=== PATIENT | male | born 1990 | race Hispanic/Latino ===

== ENCOUNTER 2024-05-16 17:58 | Inpatient (IN) | payer SELFPAY ==
[~2024-05-16] VITALS: Ht 177.8 cm; Wt 130.7 kg
[2024-05-16 19:13] LABS: BASOPHILS # (AUTO) 0.05 K/uL (0.00-0.20); BASOPHILS % (AUTO) 0.5 % (0.0-5.0); EOSINOPHILS # (AUTO) 0.03 K/uL (0.00-0.70); EOSINOPHILS % (AUTO) 0.3 % (0.0-8.0); HEMATOCRIT 49.1 % (42-54); IMMATURE GRANULOCYTE ABSOLUTE 0.05 K/uL (0-1); LYMPHOCYTES # (AUTO) 1.8 K/uL (1.0-4.8); MEAN CORPUSCULAR HGB CONC 35.6 g/dL (32.0-36.0); MEAN CORPUSCULAR VOLUME 92.5 fL (79-99); MONOCYTES # (AUTO) 0.8 K/uL (0.1-1.0); MONOCYTES % (AUTO) 7.7 % (3.0-13.0); NEUTROPHILS # (AUTO) 7.9 K/uL (1.8-7.7); PLATELET COUNT (AUTO) 228 K/uL (130-400); RED BLOOD CELL COUNT(AUTO) 5.31 MIL/uL (4.50-6.20); WHITE BLOOD COUNT (AUTO) 10.7 K/uL (4.8-10.8)
--- NOTE | 2024-05-16 19:18 | HMCIMG ---
US ABDOMINAL RUQ\E\LTD HISTORY: Abdominal pain COMPARISON: None TECHNIQUE: Right upper quadrant abdominal ultrasound study was performed. FINDINGS: Liver is enlarged measuring 19.7 cm. The visualized portion of the pancreas is within normal limits. Liver is echogenic consistent with liver parenchymal disease. Gallstones are seen in the gallbladder. Common duct measures 6 mm. No evidence of gallbladder wall thickening is seen. Right kidney measures 13.7 x 5.5 x 5.7 cm. No hydronephrosis is seen of the right kidney. There is right renal cyst measuring 12 mm. IMPRESSION: 1. Gallstones. Borderline ductal dilatation is seen. 2. No hydronephrosis is seen.
[2024-05-16 19:21] LABS: POTASSIUM 4.5 mmol/L (3.5-5.1)
[2024-05-16 19:25] LABS: BILIRUBIN,DIRECT 0.1 mg/dL (0.0-0.3); BILIRUBIN,TOTAL 0.8 mg/dL (0.2-1.0); TOTAL PROTEIN, SERUM 8.4 g/dL (6.0-8.3)
--- NOTE | 2024-05-16 20:50 | NUR ---
ASSUME PATIENT CARE AT THIS POINT
[2024-05-16] MEDS: 0.9%NACL 1000ML 1,000 ML IV ONE (21:18)
[2024-05-16] MEDS: ketOROlac 30MG VIAL (30MG/ML) IVP ONE (21:18)
[2024-05-16] MEDS: ondanSETRON 4MG INJ IVP ONE (21:18)
[2024-05-16] MEDS: morPHINE 4 MG SYG IVP ONE (21:18)
--- NOTE | 2024-05-16 21:41 | NUR ---
PATIENT NOT ON ANY HOME MEDS
--- NOTE | 2024-05-16 21:59 | ERN ---
ED Note History of Present Illness Stated Complaint: CHOLELITHIASIS Chief Complaint: Flank Pain Time Seen by MD: 18:02 Time Seen by Midlevel: 18:02 Dictation: The patient is a 33-year-old male with a history of gallstones who presents to the emergency department with complaints of right upper abdominal pain associated with nausea onset2 hours ago. Patient denies any fevers, vomiting, constipation or diarrhea. Denies any urinary discomfort. Allergies: Coded Allergies: No Known Drug Allergies (Unverified Allergy, Unknown, 05/16/24) Home Meds No Active Prescriptions or Reported Meds Past Medical History Past Medical History: Gallstones Surgical History: None RN Note Reviewed/Agreed w/PFSH: Yes Review of System Dictation Constitutional: Negative for fever,chills, and weight loss Eyes: Negative for injury, pain,redness, and discharge ENT: Negative for injury,pain or swelling Cardiovascular: Negative for chest pain, palpitations, and edema Respiratory: Negative for shortness of breath, cough, and wheezing, Abdomen/GI: Negative for vomiting, diarrhea, and constipation. Positive for abdominal pain, nausea Back: Negative for injury and pain : Negative for injury, bleeding and discharge MS/Extremity: Negative for injury and deformity Skin: Negative for rash, and discoloration Neuro: Negative for headache, weakness, numbness, tingling, and seizure Psych: Negative for suicide ideation, homicidal ideation, and hallucinations Initial Vital Sign VS Vital Signs Date Time Temp Pulse Resp B/P (MAP) Pulse Ox O2 Delivery O2 Flow Rate FiO2 05/16/24 18:19 99.0 79 16 171/105 100 Room Air* 0 21 Physical Exam Dictation Vital Signs reviewed General Appearance: Alert, oriented x 3, no acute distress, well developed, nourished. Head and Face: non-traumatic. Eyes: PERRL, pink conjunctivas, eyelid no trauma, anterior chamber with arcus senilis. Ears: Pinnas intact and no signs of trauma or erythema ear canals clear and no discharge TM no erythema Nose: No discharge, no bleeding. Oropharynx: Mouth normal, tongue pink. pharynx clear,no erythema, tonsils no exudates, no abscesses noted, mucous membrane moist Neck: Supple, non-tender, no thyromegaly, no masses, no JVD, no bruits Breast:Deferred Chest:No tenderness, no crepitus, no paradoxical movement, no retractions Lungs:Clear, well-ventilated, symmetric, no rales, no wheezing, no rhonchi, no stridor, good breath sounds bilaterally Heart: Regular rate, regular rhythm, no murmur, no gallops Vascular: no peripheral edema, Abdomen: Soft, positive bowel sounds, nondistended, no guarding, Right upper quadrant tenderness, no rebound, no masses no hepatomegaly, no splenomegaly, + Frias's sign, no hernias. Rectal: Deferred Genital: Deferred Neurological: Normal speech, motor function intact, sensory function intact Musculoskeletal: Neck nontender, full range of motion, back nontender, full range of motion, Extremities: nontender, full range of motion Skin: Color pink, dry, no turgor, no rash, no lacerations, no abrasions, no contusions. Lymphatic: Deferred Results (Laboratory/Radiology) Laboratory/Radiology Laboratory Tests Test 05/16/24 18:58 05/16/24 23:58 White Blood Count 10.7 K/uL (4.8-10.8) Red Blood Count 5.31 MIL/uL (4.50-6.20) Hemoglobin 17.5 g/dL (14.0-18.0) Hematocrit 49.1 % (42-54) Mean Corpuscular Volume 92.5 fL (79-99) Mean Corpuscular Hemoglobin 33.0 pg (27.0-33.0) Mean Corpuscular Hemoglobin Concent 35.6 g/dL (32.0-36.0) Red Cell Distribution Width 12.0 % (11.0-15.5) Platelet Count 228 K/uL (130-400) Mean Platelet Volume 10.3 fL (7.5-10.5) Immature Granulocyte % (Auto) 0.5 % (0-1) Neutrophils (%) (Auto) 74.0 % (40.0-77.0) Lymphocytes (%) (Auto) 17.0 % (21.0-51.0) L Monocytes (%) (Auto) 7.7 % (3.0-13.0) Eosinophils (%) (Auto) 0.3 % (0.0-8.0) Basophils (%) (Auto) 0.5 % (0.0-5.0) Neutrophils # (Auto) 7.9 K/uL (1.8-7.7) H Lymphocytes # (Auto) 1.8 K/uL (1.0-4.8) Monocytes # (Auto) 0.8 K/uL (0.1-1.0) Eosinophils # (Auto) 0.03 K/uL (0.00-0.70) Basophils # (Auto) 0.05 K/uL (0.00-0.20) Absolute Immature Granulocyte (auto 0.05 K/uL (0-1) Nucleated Red Blood Cells 0.0 % (0.0-0.19) Sodium Level 138 mmol/L (136-145) Potassium Level 4.5 mmol/L (3.5-5.1) Chloride Level 100 mmol/L (101-111) L Carbon Dioxide Level 34 mmol/L (21-32) H Blood Urea Nitrogen 7 mg/dL (7-18) Creatinine 1.0 mg/dL (0.5-1.3) Glomerular Filtration Rate Calc 103 mL/min (>90) Random Glucose 136 mg/dL (70-105) H Total Calcium 9.1 mg/dL (8.5-10.1) Total Bilirubin 0.8 mg/dL (0.2-1.0) Direct Bilirubin 0.1 mg/dL (0.0-0.3) Aspartate Amino Transf (AST/SGOT) 17 U/L (10-37) Alanine Aminotransferase (ALT/SGPT) 43 U/L (12-78) Alkaline Phosphatase 76 U/L (50-136) Total Protein 8.4 g/dL (6.0-8.3) H Albumin 4.0 g/dL (3.5-5.0) Lipase 36 U/L (16-77) Urine Color Light-Yellow (YELLOW) Urine Appearance CLEAR (CLEAR) Urine pH 6.0 (5.0-8.0) Urine Specific [place] 1.004 (1.001-1.031) Urine Protein NEGATIVE mg/dL (NEGATIVE) Urine Glucose (UA) TRACE mg/dL (NEGATIVE) H Urine Ketones NEGATIVE mg/dL (NEGATIVE) Urine Occult Blood NEGATIVE (NEGATIVE) Urine Nitrate NEGATIVE (NEGATIVE) Urine Bilirubin NEGATIVE mg/dL (NEGATIVE) Urine Urobilinogen 0.2 mg/dL (0.2-1.0) Urine Leukocyte Esterase NEGATIVE Jimi/uL Urine RBC None /HPF (0-1) Urine WBC 0-1 /HPF (0-1) Urine Bacteria None /HPF (None Seen) Labs Reviewed?: Yes ED Course ED Course Orders Procedure Category Date Status Time Cbc With Differential LAB 05/16/24 Complete 18:30 0.9%Nacl 1000ml (Ns PHA 05/16/24 Complete 1000ml) 18:30 Morphine 4mg Syg PHA 05/16/24 Complete (Morphine 4mg Syg) 18:30 Ondansetron 4mg Inj PHA 05/16/24 Complete (Zofran 4mg Inj) 18:30 Lipase LAB 05/16/24 Complete 18:30 Basic Metabolic Panel LAB 05/16/24 Complete 18:30 Hepatic Function Panel LAB 05/16/24 Complete 18:30 Us Abdominal Ruq\Ltd US 05/16/24 Resulted 18:30 Ketorolac PHA 05/16/24 Complete Tromethamine 30mg/Ml 21:00 Admit Orders ADM 05/16/24 Transmitted 21:09 Admit Orders ADM 05/16/24 Transmitted 21:59 Edm Admit Bridge Order ADM 05/16/24 Transmitted 21:59 Vital Signs Every 4 CPOE 05/16/24 Transmitted Hours 23:30 I&O Q Shift CPOE 05/16/24 Transmitted 23:30 Activity: Ad Zoya CPOE 05/16/24 Transmitted 23:30 Npo Except For Meds CPOE 05/16/24 Transmitted 23:30 O2 Order RT 05/16/24 Transmitted 23:30 Cbc With Differential LAB 05/17/24 In Process 04:00 Magnesium LAB 05/17/24 In Process 04:00 Phosphorus LAB 05/17/24 In Process 04:00 Thyroid Stimulating LAB 05/17/24 In Process Hormone 04:00 Lactated Ringers PHA 05/16/24 In Process 1000ml (Lactated 23:30 Acetaminophen 325 Tab PHA 05/16/24 In Process (Tylenol 325mg Tab 23:30 Acetaminophen 650mg PHA 05/16/24 In Process Supp (Tylenol 650mg 23:30 Lactulose 20 Gm/30 Ml PHA 05/16/24 In Process Udcup (Constulose 23:30 Docusate Sodium 100 PHA 05/16/24 In Process Mg Cap (Colace 100mg 23:30 Temazepam 15 Mg Cap PHA 05/16/24 In Process (Restoril 15 Mg Cap) 23:30 Ondansetron 4mg Inj PHA 05/16/24 In Process (Zofran 4mg Inj) 23:30 Hydralazine 20mg Inj PHA 05/16/24 In Process (Apresoline 20mg In 23:30 Apply Scds CPOE 05/16/24 Transmitted 23:30 Initiate TRE 05/16/24 In Process Hyperglycemia Protoco 23:30 Insulin Regular, PHA 05/17/24 In Process Human 3ml (Humulin R 07:30 Comprehensive LAB 05/17/24 In Process Metabolic Panel 04:00 Zosyn 3.375gm+Ns 50ml PHA 05/16/24 In Process (Zosyn 3.375gm+Ns 23:30 Hydromorphone 0.5mg PHA 05/17/24 Complete Syg (Dilaudid 0.5mg 01:00 Urinalysis LAB 05/16/24 Complete W/Microscopic 23:58 Lisinopril 10mg PHA 05/17/24 In Process (Prinivil 10mg) 03:15 Ketorolac PHA 05/17/24 In Process Tromethamine 30mg/Ml 04:30 Hemoglobin A1c LAB 05/17/24 Logged 04:18 Troponin I High LAB 05/17/24 Logged Sensitivity 04:18 General Surgery CONPHYSVC 05/17/24 Transmitted Consult 04:22 Vital Signs Date Time Temp Pulse Resp B/P (MAP) Pulse Ox O2 Delivery O2 Flow Rate FiO2 05/17/24 03:21 98.4 97 18 176/113 99 Room Air 05/17/24 01:05 89 161/101 05/17/24 00:07 89 182/98 05/16/24 23:00 Room Air* 0 05/16/24 22:30 98.4 97 18 185/103 99 Room Air 05/16/24 21:41 98.4 75 18 165/65 99 Room Air* 0 05/16/24 18:21 99.0 79 16 171/105 0 05/16/24 18:19 99.0 79 16 171/105 100 Room Air* 0 21 Medical Decision Making MDM MDM: The patient is a 33-year-old male with a history of gallstones who presents to the emergency department with complaints of right upper abdominal pain associated with nausea onset2 hours ago. Patient denies any fevers, vomiting, constipation or diarrhea. Denies any urinary discomfort. CBC showed no leukocytosis, no anemia, chemistry showed Differential diagnosis: Cholecystitis, cholelithiasis, gastritis, electrolyte imbalance, normal renal function, normal liver enzymes, normal lipase, ultrasound revealed a cholelithiasis with a borderline ductal dilation. Patient with tenderness to right upper quadrant. Will be admitted for further management. Comorbidities: Gallstones Tests considered and not ordered secondary to shared decision making include: none Previous outside records reviewed: none Risk of complication and/or morbidity or mortality of patient management: The patient meets criteria for admission. Need for emergency major/minor surgery: No There are no social concerns with this patient. I independently interpreted the tests I ordered (labs, urinalysis, etc.). I discussed the case with the hospitalist for admission. Fanta who accepts admission. I discussed the case with the following specialists: none. Historian: [email or web address]. I independently interpreted imaging studies and EKGs that I ordered (US, CT, XR, EKG, etc.). External chart review: none. Medical management and examination interpretation discussions were had by me wi th other qualified healthcare professionals as indicated for the patient's care. DX & DISP Disposition: Inpatient Decision to Admit Date: May 16, 2024 Decision to Admit Time: 21:09 Departure Impression: Primary Impression: Cholelithiasis Additional Impressions: Abdominal pain, Nausea Condition: Stable Scripts No Active Prescriptions or Reported Meds Referrals: SELF,REFERRAL (PCP) I have reviewed the case, and I agree with, Diagnosis and Plan ATTESTATION BY PHYSICIAN I PERFORMED THE SUBSTANTIVE PORTION OF THE VISIT. I HAVE REVIEWED AND PERSONALLY MADE AND APPROVED THE MANAGEMENT PLAN THAT IS DOCUMENTED IN THE NOTE BY MYSELF FOR THE A PP. I ACKNOWLEDGED FOR RESPONSIBILITY FOR THE PATIENT'S MANAGEMENT PLAN. SCOTT BARNEY May 16, 2024 21:59 SALBADOR IGNACIO MD May 17, 2024 05:10
[2024-05-16 22:30] VITALS: BP 185/103; PULSE 97; RESP 18; TEMP 98.5
--- NOTE | 2024-05-16 23:09 | HP ---
[facility] HISTORY AND PHYSICAL Date of Service: May 16, 2024 Time of Service: 23:09 Attending/supervising physician: Dr. Watkins and Dr. Elena Norris HISTORY OF PRESENT ILLNESS: Mr. Garvey is a 33-year-old male with a history of gallstones who presented to [facility] for evaluation of right upper abdominal pain associated with nausea onset 2 hours [employer]. Patient denies any fevers, vomiting, constipation or diarrhea. Denies any urinary discomfort. Patient reports that he has been to the hospital few for abdominal pain due to gallstones. He reports that he is discharged home and informed that gallbladder surgery is only done for emergencies. The patient presented to the ED with a blood pressure 171/105, heart rate 79, respirations 18, temperature 99.0 F, 100% on room air. The patient denies any known history of hypertension. Sonogram: Liver is enlarged measuring 19.7 cm. Liver is echogenic consistent with liver parenchymal disease. Gallstones are seen in the gallbladder. Common duct measures 6 mm. No evidence of gallbladder wall thickening is seen. Right kidney measures 13.7 x 5.5 x 5.7 cm. No hydronephrosis is seen of the right kidney. There is right renal cyst measuring 12 mm. IMPRESSION: Gallstones. Borderline ductal dilatation is seen. ED provider request patient be admitted with the diagnosis of cholelithiasis, abdominal pain, nausea. I went to assess patient at bedside in room 317. The patient appeared comfortable, in no distress. I informed patient and family at bedside of a labs, diagnostics, and plan of care. They verbalized understanding and are in agreement with the plan. Plan and assessment are listed below. REVIEW OF SYSTEMS CONSTITUTIONAL: Denies fevers, chills, or night sweats. No unintentional weight loss reported. NEUROLOGICAL: Denies headache, amaurosis fugax, motor weakness, sensory deficit, vertigo/spinning sensation, gait abnormalities, or tremors. ENT: No hearing loss, otalgia, otorrhea, rhinitis, rhinorrhea, hoarseness, or sore throat. CARDIOVASCULAR: Denies any exertional angina, dyspnea on exertion, orthopnea, paroxysmal nocturnal dyspnea, palpitations, life-threatening arrhythmias, claudication. PULMONARY: Denies any shortness of breath, cough, phlegm/sputum, hemoptysis, pleuritic chest pain. SLEEP: Denies morning headaches, daytime somnolence or napping. Denies diff iculty falling asleep, staying asleep, waking from sleep. Denies knowledge of snoring. GASTROINTESTINAL: Denies any type of dysphagia to either liquids or solids. Denies nausea, vomiting, pyrosis, early satiety, abdominal pain, diarrhea, constipation, or changes in stool consistency or caliber. Denies coffee-ground emesis, hematemesis, hematochezia, or melanotic stools. GENITOURINARY: Denies frequency, urgency, nocturia, hematuria or incontinence (Storage/Irritative symptoms.) Low urinary stream, straining to void, urinary intermittency or hesitancy, splitting of the voiding stream, terminal dribbling. ENDOCRINOLOGIC: Denies polyuria, polydipsia, polyphagia or heat/cold in tolerances. HEMATOLOGIC: Denies thrombophilia/previous clots, or coagulopathy/bleeding disorders. ONCOLOGIC: Denies personal history of malignancy. DERMATOLOGIC: Denies rashes or pruritus. PSYCHIATRIC: Denies any suicidal or homicidal ideation. Denies hallucinations. PAST MEDICAL HISTORY: [ ] PAST SURGICAL HISTORY: [ ] PAST SOCIAL HISTORY: [ ] FAMILY HISTORY: [ ] Coded Allergies: No Known Drug Allergies (Unverified Allergy, Unknown, 05/16/24) PHYSICAL EXAM GENERAL APPEARANCE: The patient is awake, alert, and oriented, in no acute cardiopulmonary distress. NEUROLOGICAL: Cranial nerves II-XII grossly intact. Motor is 5/5 in bilateral upper and lower extremities proximal to distal. No sensory deficits. HEENT: Face is symmetric. Pupils are equal and reactive. Extraocular movements are intact. NECK: Supple. No JVD. No thyromegaly. No submental, submandibular, pre- /postauricular, occipital or supraclavicular lymphadenopathy. CHEST: Normal chest expansion. No Telemetry. LUNGS: Absence of any rales, rhonchi or any wheezing. CARDIOVASCULAR: Regular. S1 and S2 normal. No appreciable rubs, murmurs or gallops. ABDOMEN: Soft, nontender, and nondistended. There is no rebound, voluntary guarding, or rigidity. : Deferred. No Wen. EXTREMITIES: Non-edematous and not cyanotic. No clubbing. Good capillary refill. SKIN: No skin breakdown. Vital Sign (Last 24 Hours) 05/16/24 05/16/24 21:41 22:30 Temp 98.4 Pulse 97 Resp 18 B/P (MAP) 185/103 Pulse Ox 99 O2 Delivery Room Air O2 Flow Rate 0 FiO2 21 LABS: Laboratory: Test 05/16/24 18:58 Range/Units White Blood Count 10.7 4.8-10.8 K/uL Red Blood Count 5.31 4.50-6.20 MIL/uL Hemoglobin 17.5 14.0-18.0 g/dL Hematocrit 49.1 42-54 % Mean Corpuscular Volume 92.5 79-99 fL Mean Corpuscular Hemoglobin 33.0 27.0-33.0 pg Mean Corpuscular Hemoglobin Concent 35.6 32.0-36.0 g/dL Red Cell Distribution Width 12.0 11.0-15.5 % Platelet Count 228 130-400 K/uL Mean Platelet Volume 10.3 7.5-10.5 fL Immature Granulocyte % (Auto) 0.5 0-1 % Neutrophils (%) (Auto) 74.0 40.0-77.0 % Lymphocytes (%) (Auto) 17.0 L 21.0-51.0 % Monocytes (%) (Auto) 7.7 3.0-13.0 % Eosinophils (%) (Auto) 0.3 0.0-8.0 % Basophils (%) (Auto) 0.5 0.0-5.0 % Neutrophils # (Auto) 7.9 H 1.8-7.7 K/uL Lymphocytes # (Auto) 1.8 1.0-4.8 K/uL Monocytes # (Auto) 0.8 0.1-1.0 K/uL Eosinophils # (Auto) 0.03 0.00-0.70 K/uL Basophils # (Auto) 0.05 0.00-0.20 K/uL Absolute Immature Granulocyte (auto 0.05 0-1 K/uL Nucleated Red Blood Cells 0.0 0.0-0.19 % Sodium Level 138 136-145 mmol/L Potassium Level 4.5 3.5-5.1 mmol/L Chloride Level 100 L 101-111 mmol/L Carbon Dioxide Level 34 H 21-32 mmol/L Blood Urea Nitrogen 7 7-18 mg/dL Creatinine 1.0 0.5-1.3 mg/dL Glomerular Filtration Rate Calc 103 >90 mL/min Random Glucose 136 H 70-105 mg/dL Total Calcium 9.1 8.5-10.1 mg/dL Total Bilirubin 0.8 0.2-1.0 mg/dL Direct Bilirubin 0.1 0.0-0.3 mg/dL Aspartate Amino Transf (AST/SGOT) 17 10-37 U/L Alanine Aminotransferase (ALT/SGPT) 43 12-78 U/L Alkaline Phosphatase 76 50-136 U/L Total Protein 8.4 H 6.0-8.3 g/dL Albumin 4.0 3.5-5.0 g/dL Lipase 36 16-77 U/L DIAGNOSTICS / RADIOLOGY: [ ] ASSESSMENT: Cholelithiasis with common ductal dilatation, per abdominal sono on 05/16/2024 Recurrent abdominal pain, POA Liver is enlarged and echogenic, consistent with liver parenchymal disease, per son 05/16/2024 Right renal cyst measuring 12 mm, per sono 05/16/2024 New onset hypertension Hyperglycemia Morbid obesity, BMI 41.4 PLAN: Admit patient to medical floor. P.r.n. medications for: Pain management, nausea, vomiting, constipation, fever, hypertension Consult general surgery. Start lisinopril 10 mg p.o. b.i.d. Blood pressure every 4 hours and p.r.n.. Glucometer checks a.c. and HS with insulin regular sliding scale. Monitor renal and liver function. Monitor electrolytes and treat accordingly. DVT and GI prophylaxis. A.m. labs: CBC, CMP, Mag, phos, TSH, A1c, troponin ADVANCED CARE PLANNING 1. Which of the following were discussed? Hospice Care - No Therapeutic options - Yes Advance Directives - Yes Other discussions - 2. Discussed with who? Patient 3. Voluntary nature of this service was explained to the patient? Yes 4. Amount of time spent - ___ over 35 minute ___ 5. Reviewed by Physician? (if this service was performed by NPP) Yes Patient seen and examined by me. Agree with note by [employer]OUNDW[employer] MONITORING TECHNICIAN SEE ADDITIONAL ORDERS PER CHART DISCUSSED WITH NURSING STAFF OUMOU LAMBERT HARNESS MENDER May 16, 2024 23:09
[2024-05-16] MEDS ORDERED: doCUSate SODIUM 100 MG CAP PO PRN (23:30)
[2024-05-16] MEDS ORDERED: LACTULOSE 20 GM/30 ML UDCUP PO PRN (23:30)
[2024-05-16] MEDS ORDERED: acetaMINOPHEN 650 MG SUPPOSITORY RC PRN (23:30)
[2024-05-16] MEDS ORDERED: ondanSETRON 4MG INJ IVP PRN (23:30)
[2024-05-16] MEDS ORDERED: TEMAZepam 15 MG CAPSULE PO PRN (23:30)
[2024-05-16] MEDS ORDERED: acetaMINOPHEN 325 MG TAB PO PRN (23:30)
[2024-05-16] MEDS: LACTATED RINGERS 1000ML 1,000 ML IV SCH (23:45)
[2024-05-16] MEDS: ZOSYN 3.375GM +NS 50ML IVPB SCH (23:49)
[2024-05-17] VITALS (11 sets, daily range): BP systolic 124–182; BP diastolic 69–117; PULSE 88–101; RESP 18–19; TEMP 98.4–99.2; O2SAT 96–97
[2024-05-17] MEDS: hydrALAZine 20MG/ML VIAL IV PRN ×2 (00:21→17:10)
--- NOTE | 2024-05-17 00:21 | NUR ---
High blood pressure Patient given hydralazine 10 mg IV push through 18G right antecubital vein at this time. Blood pressure 182/98, pulse 89bpm. Addendum: 05/17/24 at 0026 by BRENDAN BRYANT RN RN Correction: 18G IV to right hand
[2024-05-17] MEDS: hydroMORPHone 0.5 MG SYG (0.5MG/0.5ML) IVP ONE (01:11)
--- NOTE | 2024-05-17 01:38 | NUR ---
ELEVATED BP AT 0007 PATIENT BP WAS 182/98 SO 10 MG OF HYDRALAZINE WAS GIVEN AT 0021. RECHECKED AT 0105, BP WAS 161/101. PATIENT STATE HE IS EXPERIENCING ABDOMINAL PAIN 12/28. HE WAS THEN GIVEN A ONE TIME DOSE OF DILAUDID 0.5MG AND WILL RECHECK BP IN ANOTHER HOUR.
[2024-05-17 02:15] LABS: APPEARANCE,URINE CLEAR (CLEAR); BILIRUBIN,URINE NEGATIVE (NEGATIVE); COLOR,URINE Light-Yellow (YELLOW); GLUCOSE, URINE (UA) TRACE mg/dL (NEGATIVE); KETONES,URINE NEGATIVE (NEGATIVE); LEUKOCYTE ESTERASE ,URINE NEGATIVE Leu/uL (NEGATIVE); NITRATE,URINE NEGATIVE (NEGATIVE); OCCULT BLOOD,URINE NEGATIVE (NEGATIVE); PROTEIN,URINE NEGATIVE (NEGATIVE); UROBILINOGEN,URINE 0.2 mg/dL (0.2-1.0); WBC,URINE 0-1 /HPF (0-1)
[2024-05-17] MEDS: LISINOPRIL 10 MG TABLET PO SCH (03:37)
[2024-05-17 05:29] LABS: BASOPHILS # (AUTO) 0.05 K/uL (0.00-0.20); BASOPHILS % (AUTO) 0.3 % (0.0-5.0); EOSINOPHILS # (AUTO) 0.01 K/uL (0.00-0.70); EOSINOPHILS % (AUTO) 0.1 % (0.0-8.0); IMMATURE GRANULOCYTE ABSOLUTE 0.09 K/uL (0-1); LYMPHOCYTES # (AUTO) 1.8 K/uL (1.0-4.8); LYMPHOCYTES % (AUTO) 9.3 % (21.0-51.0); MEAN CORPUSCULAR HEMOGLOBIN 32.8 pg (27.0-33.0); MEAN CORPUSCULAR HGB CONC 35.5 g/dL (32.0-36.0); MEAN CORPUSCULAR VOLUME 92.3 fL (79-99); MONOCYTES # (AUTO) 1.5 K/uL (0.1-1.0); MONOCYTES % (AUTO) 8.1 % (3.0-13.0); NEUTROPHILS # (AUTO) 15.5 K/uL (1.8-7.7); NEUTROPHILS % (AUTO) 81.7 % (40.0-77.0); PLATELET COUNT (AUTO) 216 K/uL (130-400); RED BLOOD CELL COUNT(AUTO) 5.31 MIL/uL (4.50-6.20); WHITE BLOOD COUNT (AUTO) 18.9 K/uL (4.8-10.8)
[2024-05-17 05:58] LABS: ALBUMIN 3.8 g/dL (3.5-5.0); BILIRUBIN,TOTAL 1.3 mg/dL (0.2-1.0); CREATININE 0.9 mg/dL (0.5-1.3); MAGNESIUM 1.8 mg/dL (1.80-2.40); PHOSPHORUS 2.9 mg/dL (2.5-4.9); POTASSIUM 4.6 mmol/L (3.5-5.1); THYROID STIMULATING HORMONE 1.09 uIU/mL (0.36-3.74)
[2024-05-17] MEDS: INSULIN humuLIN R 100 UNIT/ML 3ML SQ SCH (06:14)
[2024-05-17] MEDS: ketOROlac 30MG VIAL (30MG/ML) IVP PRN (08:37)
[2024-05-17] MEDS ORDERED: morPHINE 2 MG SYG IVP PRN (11:30)
--- NOTE | 2024-05-17 11:30 | NUR ---
BLOOD GLUCOSE AT 121. NO INSULIN COVERAGE NEEDED AT THIS TIME
--- NOTE | 2024-05-17 12:00 | NUR ---
DCP: HOME met with pt and his mother Olinda Marcano [id number]. Pt lives with his parents, works at [employer] parents transport as needed. Pt is independent of ADLS and ambulation, no in home cares services, Has no PCP, community resources given. DCP is home Addendum: 05/17/24 at 1203 by PRABHA MAYO Amended: Links added.
--- NOTE | 2024-05-17 13:57 | PN ---
[facility] PROGRESS NOTE Date of Service: May 17, 2024 Time of Service: 13:[address] Trujillo SUBJECTIVE: [05/16 Mr. 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 Patient denies any fevers, vomiting, constipation or diarrhea. Denies any urinary discomfort. Patient reports that he has been to the hospital few for abdominal pain due to gallstones. He reports that he is discharged home and informed that gallbladder surgery is only done for emergencies. The patient presented to the ED with a blood pressure 171/105, heart rate 79, respirations 18, temperature 99.0 F, 100% on room air. The patient denies any known history of hypertension. Sonogram: Liver is enlarged measuring 19.7 cm. Liver is echogenic consistent with liver parenchymal disease. Gallstones are seen in the gallbladder. Common duct measures 6 mm. No evidence of gallbladder wall thickening is seen. Right kidney measures 13.7 x 5.5 x 5.7 cm. No hydronephrosis is seen of the right kidney. There is right renal cyst measuring 12 mm. IMPRESSION: Gallstones. Borderline ductal dilatation is seen. ED provider request patient be admitted with the diagnosis of cholelithiasis, abdominal pain, nausea. 05/17 patient was seen by nurse practitioner and physician during rounding in room 317 sitting in the chair. Today WBC is 18.9. Magnesium 1.8. Patient continues to be on Zosyn. Which was out of the way showed gallstones. Patient is pending evaluation/further recommendations by surgeon regarding possible cholecystectomy. We will continue to monitor patient in the meantime. A.m. labs.] REVIEW OF SYSTEMS CONSTITUTIONAL: Denies fevers, chills, or night sweats. No unintentional weight loss reported. NEUROLOGICAL: Denies headache, amaurosis fugax, motor weakness, sensory deficit, vertigo/spinning sensation, gait abnormalities, or tremors. ENT: No hearing loss, otalgia, otorrhea, rhinitis, rhinorrhea, hoarseness, or s ore throat. CARDIOVASCULAR: Denies any exertional angina, dyspnea on exertion, orthopnea, paroxysmal nocturnal dyspnea, palpitations, life-threatening arrhythmias, claudication. PULMONARY: Denies any shortness of breath, cough, phlegm/sputum, hemoptysis, pleuritic chest pain. SLEEP: Denies morning headaches, daytime somnolence or napping. Denies difficulty falling asleep, staying asleep, waking from sleep. Denies knowledge of snoring. GASTROINTESTINAL: Denies any type of dysphagia to either liquids or solids. Denies nausea, vomiting, pyrosis, early satiety, abdominal pain, diarrhea, constipation, or changes in stool consistency or caliber. Denies coffee-ground emesis, hematemesis, hematochezia, or melanotic stools. GENITOURINARY: Denies frequency, urgency, nocturia, hematuria or incontinence (Storage/Irritative symptoms.) Low urinary stream, straining to void, urinary intermittency or hesitancy, splitting of the voiding stream, terminal dribbling. ENDOCRINOLOGIC: Denies polyuria, polydipsia, polyphagia or heat/cold intolerances. HEMATOLOGIC: Denies thrombophilia/previous clots, or coagulopathy/bleeding disorders. ONCOLOGIC: Denies personal history of malignancy. DERMATOLOGIC: Denies rashes or pruritus. PSYCHIATRIC: Denies any suicidal or homicidal ideation. Denies hallucinations. PHYSICAL EXAM GENERAL APPEARANCE: The patient is awake, alert, and oriented, in no acute cardiopulmonary distress. NEUROLOGICAL: Cranial nerves II-XII grossly intact. Motor is 5/5 in bilateral upper and lower extremities proximal to distal. No sensory deficits. HEENT: Face is symmetric. Pupils are equal and reactive. Extraocular movements are intact. NECK: Supple. No JVD. No thyromegaly. No submental, submandibular, pre- /postauricular, occipital or supraclavicular lymphadenopathy. CHEST: Normal chest expansion. No Telemetry. LUNGS: Absence of any rales, rhonchi or any wheezing. CARDIOVASCULAR: Regular. S1 and S2 normal. No appreciable rubs, murmurs or gallops. ABDOMEN: Soft, nontender, and nondistended. There is no rebound, voluntary guarding, or rigidity. : Deferred. No Wen. EXTREMITIES: Non-edematous and not cyanotic. No clubbing. Good capillary refill. SKIN: No skin breakdown. Vital Signs (last 8hr) Date Time Temp Pulse Resp B/P (MAP) Pulse Ox O2 Delivery O2 Flow Rate FiO2 05/17/24 12:00 98.6 101 19 139/78 96 Room Air 05/17/24 07:58 99.0 91 19 146/94 97 Room Air 05/17/24 06:43 98 160/117 LABS: Laboratory: Test 05/17/24 11:41 05/17/24 04:54 05/16/24 23:58 05/16/24 18:58 Range/Units Whole Blood Glucose 121 H 70-110 MG/DL White Blood Count 18.9 #H 4.8-10.8 K/uL Red Blood Count 5.31 4.50-6.20 MIL/uL Hemoglobin 17.4 14.0-18.0 g/dL Hematocrit 49.0 42-54 % Mean Corpuscular Volume 92.3 79-99 fL Mean Corpuscular Hemoglobin 32.8 27.0-33.0 pg Mean Corpuscular Hemoglobin Concent 35.5 32.0-36.0 g/dL Red Cell Distribution Width 12.0 11.0-15.5 % Platelet Count 216 130-400 K/uL Mean Platelet Volume 10.7 H 7.5-10.5 fL Immature Granulocyte % (Auto) 0.5 0-1 % Neutrophils (%) (Auto) 81.7 H 40.0-77.0 % Lymphocytes (%) (Auto) 9.3 L 21.0-51.0 % Monocytes (%) (Auto) 8.1 3.0-13.0 % Eosinophils (%) (Auto) 0.1 0.0-8.0 % Basophils (%) (Auto) 0.3 0.0-5.0 % Neutrophils # (Auto) 15.5 H 1.8-7.7 K/uL Lymphocytes # (Auto) 1.8 1.0-4.8 K/uL Monocytes # (Auto) 1.5 H 0.1-1.0 K/uL Eosinophils # (Auto) 0.01 0.00-0.70 K/uL Basophils # (Auto) 0.05 0.00-0.20 K/uL Absolute Immature Granulocyte (auto 0.09 0-1 K/uL Nucleated Red Blood Cells 0.0 0.0-0.19 % White Cell Morphology Comment See comments Sodium Level 135 L 136-145 mmol/L Potassium Level 4.6 3.5-5.1 mmol/L Chloride Level 99 L 101-111 mmol/L Carbon Dioxide Level 30 21-32 mmol/L Blood Urea Nitrogen 5 L 7-18 mg/dL Creatinine 0.9 0.5-1.3 mg/dL Glomerular Filtration Rate Calc 116 >90 mL/min Random Glucose 120 H 70-105 mg/dL Hemoglobin A1c 5.0 4.0-6.0 % Estimated Average Glucose (eAG) 97 70-126 mg/dL Total Calcium 8.9 8.5-10.1 mg/dL Phosphorus Level 2.9 2.5-4.9 mg/dL Magnesium Level 1.80 1.80-2.40 mg/dL Total Bilirubin 1.3 #H 0.2-1.0 mg/dL Aspartate Amino Transf (AST/SGOT) 27 10-37 U/L Alanine Aminotransferase (ALT/SGPT) 41 12-78 U/L Alkaline Phosphatase 71 50-136 U/L Troponin I High Sensitivity < 4 L 4-75 ng/L Total Protein 8.0 6.0-8.3 g/dL Albumin 3.8 3.5-5.0 g/dL Thyroid Stimulating Hormone (TSH) 1.09 0.36-3.74 uIU/mL Urine Color Light-Yellow YELLOW Urine Appearance CLEAR CLEAR Urine pH 6.0 5.0-8.0 Urine Specific [place] 1.004 1.001-1.031 Urine Protein NEGATIVE NEGATIVE mg/dL Urine Glucose (UA) TRACE H NEGATIVE mg/dL Urine Ketones NEGATIVE NEGATIVE mg/dL Urine Occult Blood NEGATIVE NEGATIVE Urine Nitrate NEGATIVE NEGATIVE Urine Bilirubin NEGATIVE NEGATIVE mg/dL Urine Urobilinogen 0.2 0.2-1.0 mg/dL Urine Leukocyte Esterase NEGATIVE NEGATIVE Jimi/uL Urine RBC None 0-1 /HPF Urine WBC 0-1 0-1 /HPF Urine Bacteria None None Seen /HPF Direct Bilirubin 0.1 0.0-0.3 mg/dL Lipase 36 16-77 U/L Current Medications Medications (Trade) Dose Ordered Sig/Odette Route PRN Reason Start Time Stop Time Status Last Admin Dose Admin Acetaminophen (TYLenol 325MG TAB) 650 mg Q6H PRN PO FEVER/MILD PAIN LEVEL 1-3 05/16/24 23:30 06/15/24 23:29 Acetaminophen (TYLenol 650MG SUPPOSITORY) 650 mg Q6H PRN RC FEVER / MILD PAIN 1-3 IF NPO 05/16/24 23:30 06/15/24 23:29 Docusate Sodium (COLace 100MG CAP) 100 mg BID PRN PO CONSTIPATION 05/16/24 23:30 06/15/24 23:29 Hydralazine HCl (APRESOLine 20MG INJ) 10 mg Q2H PRN IV SBP GREATER THAN 160 05/16/24 23:30 05/17/24 11:27 DC 05/17/24 00:21 10 MG Hydralazine HCl (APRESOLine 20MG INJ) 10 mg Q6H6 PRN IV SBP GREATER THAN 150 05/17/24 11:30 06/15/24 23:29 Insulin Human Regular (humuLIN R 100 UNIT/ML 3ML) INSULIN SLIDING SCAL... ACHS SQ 05/17/24 07:30 06/16/24 07:29 Ketorolac Tromethamine (toRADol) 30 mg Q6H PRN IVP SEVERE PAIN (7-10) 05/17/24 04:30 05/22/24 04:29 05/17/24 08:37 30 MG Lactated Ringer's 1,000 ml @ 75 mls/hr [id number] IV 05/16/24 23:30 06/15/24 23:29 05/16/24 23:45 75 MLS/HR Lactulose (Constulose 20gm/ 30ml Udcup) 20 gm Q6H PRN PO CONSTIPATION 05/16/24 23:30 06/15/24 23:29 Lisinopril (Prinivil 10mg) 10 mg BID PO 05/17/24 03:15 06/16/24 03:14 05/17/24 03:37 10 MG Morphine Sulfate (morPHINE 2MG SYG) 2 mg Q6H6 PRN IVP SEVERE PAIN (7-10) 05/17/24 11:30 05/24/24 11:29 Ondansetron HCl (zoFRAN 4MG INJ) 4 mg Q6H PRN IVP NAUSEA/VOMITING 05/16/24 23:30 06/15/24 23:29 Piperacillin Sod/ Tazobactam Sod (Zosyn 3.375gm+NS 50ml) 3.375 gm Q12H IVPB 05/16/24 23:30 05/26/24 23:29 05/16/24 23:49 3.375 GM Temazepam (restORIL 15 MG CAP) 15 mg HS PRN PO INSOMNIA/SLEEP 05/16/24 23:30 06/15/24 23:29 DIAGNOSTICS / RADIOLOGY: [ ] ASSESSMENT: Cholelithiasis with common ductal dilatation, per abdominal sono on 05/16/2024 Recurrent abdominal pain, POA Liver is enlarged and echogenic, consistent with liver parenchymal disease, 05/16/2024 Right renal cyst measuring 12 mm, per sono 05/16/2024 New onset hypertension Hyperglycemia Morbid obesity, BMI 41.4 PLAN: Admit patient to medical floor. P.r.n. medications for: Pain management, nausea, vomiting, constipation, fever, hypertension Consult general surgery. Start lisinopril 10 mg p.o. b.i.d. Blood pressure every 4 hours and p.r.n.. Glucometer checks a.c. and HS with insulin regular sliding scale. Monitor renal and liver function. Monitor electrolytes and treat accordingly. DVT and GI prophylaxis. A.m. labs: ATTESTATION BY PHYSICIAN I have seen and examined the patient. I reviewed the documentation, medical decision making, and treatment plan as noted by the mid-level provider above. I agree with the findings and plan of care. Krishan Trujillo IV, MD, KATARZYNA B POACHER WRINGER OPERATOR May 17, 2024 13:56
--- NOTE | 2024-05-17 16:30 | NUR ---
BLOOD GLUCOSE AT 130. NO INSULIN COVERAGE NEEDED AT THIS TIME
[2024-05-18] VITALS (8 sets, daily range): BP systolic 122–143; BP diastolic 67–77; PULSE 72–85; RESP 18–20; TEMP 97.9–99.3; O2SAT 97–99
[2024-05-18 05:19] LABS: BASOPHILS # (AUTO) 0.05 K/uL (0.00-0.20); BASOPHILS % (AUTO) 0.4 % (0.0-5.0); EOSINOPHILS # (AUTO) 0.17 K/uL (0.00-0.70); EOSINOPHILS % (AUTO) 1.2 % (0.0-8.0); HEMATOCRIT 44.2 % (42-54); IMMATURE GRANULOCYTE ABSOLUTE 0.04 K/uL (0-1); LYMPHOCYTES # (AUTO) 2.5 K/uL (1.0-4.8); MEAN CORPUSCULAR HGB CONC 35.1 g/dL (32.0-36.0); MONOCYTES # (AUTO) 1.3 K/uL (0.1-1.0); MONOCYTES % (AUTO) 9.6 % (3.0-13.0); NEUTROPHILS # (AUTO) 9.7 K/uL (1.8-7.7); NEUTROPHILS % (AUTO) 70.5 % (40.0-77.0); PLATELET COUNT (AUTO) 187 K/uL (130-400); RED CELL DISTRIBUTION WIDTH 12.2 % (11.0-15.5); WHITE BLOOD COUNT (AUTO) 13.7 K/uL (4.8-10.8)
[2024-05-18 05:34] LABS: ALBUMIN 3.1 g/dL (3.5-5.0); BILIRUBIN,TOTAL 2.4 mg/dL (0.2-1.0); MAGNESIUM 1.9 mg/dL (1.80-2.40); POTASSIUM 3.8 mmol/L (3.5-5.1); TOTAL PROTEIN, SERUM 6.9 g/dL (6.0-8.3)
--- NOTE | 2024-05-18 08:00 | NUR ---
Patient is alert, oriented in person, time and place. No signs or symptoms of respiratory distress noted. Popliteal pulses present but weak on both legs. Bowel sounds present and active on all four abdominal quadrants. PIV patent. Educated patient and family members on plan of care, pain management, current medication, PRN medications. Patient and family members verbalized understanding.
--- NOTE | 2024-05-18 11:15 | PN ---
[facility] PROGRESS NOTE Date of Service: May 18, 2024 Time of Service: 11:[address] QUINTEROS SUBJECTIVE: [05/16 Mr. 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 Patient denies any fevers, vomiting, constipation or diarrhea. Denies any urinary discomfort. Patient reports that he has been to the hospital few for abdominal pain due to gallstones. He reports that he is discharged home and informed that gallbladder surgery is only done for emergencies. The patient presented to the ED with a blood pressure 171/105, heart rate 79, respirations 18, temperature 99.0 F, 100% on room air. The patient denies any known history of hypertension. Sonogram: Liver is enlarged measuring 19.7 cm. Liver is echogenic consistent with liver parenchymal disease. Gallstones are seen in the gallbladder. Common duct measures 6 mm. No evidence of gallbladder wall thickening is seen. Right kidney measures 13.7 x 5.5 x 5.7 cm. No hydronephrosis is seen of the right kidney. There is right renal cyst measuring 12 mm. IMPRESSION: Gallstones. Borderline ductal dilatation is seen. ED provider request patient be admitted with the diagnosis of cholelithiasis, abdominal pain, nausea. 05/17 patient was seen by nurse practitioner and physician during rounding in room 317 sitting in the chair. Today WBC is 18.9. Magnesium 1.8. Patient continues to be on Zosyn. Which was out of the way showed gallstones. Patient is pending evaluation/further recommendations by surgeon regarding possible cholecystectomy. We will continue to monitor patient in the meantime. A.m. labs. 05/18 PATIENT WAS SEEN BY NURSE PRACTITIONER AND PHYSICIAN DURING ROUNDING IN ROOM 317. Ultrasound abdomen shows that patient has a gallstones. Per surgeon patient is pending HIDA scan and MRCP today. Possible surgery tomorrow in a.m.. Patient continues to be on Zosyn. WBC is trending down today is 13.7. Replace potassium magnesium per protocol. We will continue to monitor patient in the meantime. A.m. labs.] REVIEW OF SYSTEMS CONSTITUTIONAL: Denies fevers, chills, or night sweats. No unintentional weight loss reported. NEUROLOGICAL: Denies headache, amaurosis fugax, motor weakness, sensory defic it, vertigo/spinning sensation, gait abnormalities, or tremors. ENT: No hearing loss, otalgia, otorrhea, rhinitis, rhinorrhea, hoarseness, or sore throat. CARDIOVASCULAR: Denies any exertional angina, dyspnea on exertion, orthopnea, paroxysmal nocturnal dyspnea, palpitations, life-threatening arrhythmias, claudication. PULMONARY: Denies any shortness of breath, cough, phlegm/sputum, hemoptysis, pleuritic chest pain. SLEEP: Denies morning headaches, daytime somnolence or napping. Denies difficulty falling asleep, staying asleep, waking from sleep. Denies knowledge of snoring. GASTROINTESTINAL: Denies any type of dysphagia to either liquids or solids. Denies nausea, vomiting, pyrosis, early satiety, abdominal pain, diarrhea, constipation, or changes in stool consistency or caliber. Denies coffee-ground emesis, hematemesis, hematochezia, or melanotic stools. GENITOURINARY: Denies frequency, urgency, nocturia, hematuria or incontinence (Storage/Irritative symptoms.) Low urinary stream, straining to void, urinary intermittency or hesitancy, splitting of the voiding stream, terminal dribbling. ENDOCRINOLOGIC: Denies polyuria, polydipsia, polyphagia or heat/cold intolerances. HEMATOLOGIC: Denies thrombophilia/previous clots, or coagulopathy/bleeding disorders. ONCOLOGIC: Denies personal history of malignancy. DERMATOLOGIC: Denies rashes or pruritus. PSYCHIATRIC: Denies any suicidal or homicidal ideation. Denies hallucinations. PHYSICAL EXAM GENERAL APPEARANCE: The patient is awake, alert, and oriented, in no acute cardiopulmonary distress. NEUROLOGICAL: Cranial nerves II-XII grossly intact. Motor is 5/5 in bilateral upper and lower extremities proximal to distal. No sensory deficits. HEENT: Face is symmetric. Pupils are equal and reactive. Extraocular movements are intact. NECK: Supple. No JVD. No thyromegaly. No submental, submandibular, pre- /postauricular, occipital or supraclavicular lymphadenopathy. CHEST: Normal chest expansion. No Telemetry. LUNGS: Absence of any rales, rhonchi or any wheezing. CARDIOVASCULAR: Regular. S1 and S2 normal. No appreciable rubs, murmurs or gallops. ABDOMEN: Soft, nontender, and nondistended. There is no rebound, voluntary guarding, or rigidity. : Deferred. No Wen. EXTREMITIES: Non-edematous and not cyanotic. No clubbing. Good capillary refill. SKIN: No skin breakdown. Vital Signs (last 8hr) Date Time Temp Pulse Resp B/P (MAP) Pulse Ox O2 Delivery O2 Flow Rate FiO2 05/18/24 08:00 99.3 83 18 143/67 97 Room Air 05/18/24 04:00 98.2 72 19 122/71 96 Room Air LABS: Laboratory: Test 05/18/24 05:41 05/18/24 04:44 05/17/24 04:54 05/16/24 23:58 Range/Units Whole Blood Glucose 99 70-110 MG/DL White Blood Count 13.7 #H 4.8-10.8 K/uL Red Blood Count 4.70 4.50-6.20 MIL/uL Hemoglobin 15.5 14.0-18.0 g/dL Hematocrit 44.2 42-54 % Mean Corpuscular Volume 94.0 79-99 fL Mean Corpuscular Hemoglobin 33.0 27.0-33.0 pg Mean Corpuscular Hemoglobin Concent 35.1 32.0-36.0 g/dL Red Cell Distribution Width 12.2 11.0-15.5 % Platelet Count 187 130-400 K/uL Mean Platelet Volume 10.8 H 7.5-10.5 fL Immature Granulocyte % (Auto) 0.3 0-1 % Neutrophils (%) (Auto) 70.5 40.0-77.0 % Lymphocytes (%) (Auto) 18.0 L 21.0-51.0 % Monocytes (%) (Auto) 9.6 3.0-13.0 % Eosinophils (%) (Auto) 1.2 0.0-8.0 % Basophils (%) (Auto) 0.4 0.0-5.0 % Neutrophils # (Auto) 9.7 H 1.8-7.7 K/uL Lymphocytes # (Auto) 2.5 1.0-4.8 K/uL Monocytes # (Auto) 1.3 H 0.1-1.0 K/uL Eosinophils # (Auto) 0.17 0.00-0.70 K/uL Basophils # (Auto) 0.05 0.00-0.20 K/uL Absolute Immature Granulocyte (auto 0.04 0-1 K/uL Nucleated Red Blood Cells 0.0 0.0-0.19 % Sodium Level 135 L 136-145 mmol/L Potassium Level 3.8 3.5-5.1 mmol/L Chloride Level 101 101-111 mmol/L Carbon Dioxide Level 31 21-32 mmol/L Blood Urea Nitrogen 8 7-18 mg/dL Creatinine 1.0 0.5-1.3 mg/dL Glomerular Filtration Rate Calc 103 >90 mL/min Random Glucose 99 70-105 mg/dL Total Calcium 8.5 8.5-10.1 mg/dL Magnesium Level 1.90 1.80-2.40 mg/dL Total Bilirubin 2.4 #H 0.2-1.0 mg/dL Aspartate Amino Transf (AST/SGOT) 17 10-37 U/L Alanine Aminotransferase (ALT/SGPT) 36 12-78 U/L Alkaline Phosphatase 60 50-136 U/L Total Protein 6.9 6.0-8.3 g/dL Albumin 3.1 L 3.5-5.0 g/dL White Cell Morphology Comment See comments Hemoglobin A1c 5.0 4.0-6.0 % Estimated Average Glucose (eAG) 97 70-126 mg/dL Phosphorus Level 2.9 2.5-4.9 mg/dL Troponin I High Sensitivity < 4 L 4-75 ng/L Thyroid Stimulating Hormone (TSH) 1.09 0.36-3.74 uIU/mL Urine Color Light-Yellow YELLOW Urine Appearance CLEAR CLEAR Urine pH 6.0 5.0-8.0 Urine Specific [place] 1.004 1.001-1.031 Urine Protein NEGATIVE NEGATIVE mg/dL Urine Glucose (UA) TRACE H NEGATIVE mg/dL Urine Ketones NEGATIVE NEGATIVE mg/dL Urine Occult Blood NEGATIVE NEGATIVE Urine Nitrate NEGATIVE NEGATIVE Urine Bilirubin NEGATIVE NEGATIVE mg/dL Urine Urobilinogen 0.2 0.2-1.0 mg/dL Urine Leukocyte Esterase NEGATIVE NEGATIVE Jimi/uL Urine RBC None 0-1 /HPF Urine WBC 0-1 0-1 /HPF Urine Bacteria None None Seen /HPF Test 05/16/24 18:58 Range/Units Direct Bilirubin 0.1 0.0-0.3 mg/dL Lipase 36 16-77 U/L Current Medications Medications (Trade) Dose Ordered Sig/Odette Route PRN Reason Start Time Stop Time Status Last Admin Dose Admin Acetaminophen (TYLenol 325MG TAB) 650 mg Q6H PRN PO FEVER/MILD PAIN LEVEL 1-3 05/16/24 23:30 06/15/24 23:29 Acetaminophen (TYLenol 650MG SUPPOSITORY) 650 mg Q6H PRN RC FEVER / MILD PAIN 1-3 IF NPO 05/16/24 23:30 06/15/24 23:29 Docusate Sodium (COLace 100MG CAP) 100 mg BID PRN PO CONSTIPATION 05/16/24 23:30 06/15/24 23:29 Hydralazine HCl (APRESOLine 20MG INJ) 10 mg Q2H PRN IV SBP GREATER THAN 160 05/16/24 23:30 05/17/24 11:27 DC 05/17/24 00:21 10 MG Hydralazine HCl (APRESOLine 20MG INJ) 10 mg Q6H6 PRN IV SBP GREATER THAN 150 05/17/24 11:30 06/15/24 23:29 05/17/24 17:10 10 MG Insulin Human Regular (humuLIN R 100 UNIT/ML 3ML) INSULIN SLIDING SCAL... ACHS SQ 05/17/24 07:30 06/16/24 07:29 Ketorolac Tromethamine (toRADol) 30 mg Q6H PRN IVP SEVERE PAIN (7-10) 05/17/24 04:30 05/22/24 04:29 05/18/24 09:14 30 MG Lactated Ringer's 1,000 ml @ 75 mls/hr [id number] IV 05/16/24 23:30 06/15/24 23:29 05/18/24 01:52 75 MLS/HR Lactulose (Constulose 20gm/ 30ml Udcup) 20 gm Q6H PRN PO CONSTIPATION 05/16/24 23:30 06/15/24 23:29 Lisinopril (Prinivil 10mg) 10 mg BID PO 05/17/24 03:15 06/16/24 03:14 05/18/24 09:12 10 MG Morphine Sulfate (morPHINE 2MG SYG) 2 mg Q6H6 PRN IVP SEVERE PAIN (7-10) 05/17/24 11:30 05/24/24 11:29 Ondansetron HCl (zoFRAN 4MG INJ) 4 mg Q6H PRN IVP NAUSEA/VOMITING 05/16/24 23:30 06/15/24 23:29 Piperacillin Sod/ Tazobactam Sod (Zosyn 3.375gm+NS 50ml) 3.375 gm Q12H IVPB 05/16/24 23:30 05/26/24 23:29 05/17/24 23:24 3.375 GM Temazepam (restORIL 15 MG CAP) 15 mg HS PRN PO INSOMNIA/SLEEP 05/16/24 23:30 06/15/24 23:29 DIAGNOSTICS / RADIOLOGY: [ ] ASSESSMENT: Cholelithiasis with common ductal dilatation, per abdominal sono on 05/16/2024 Recurrent abdominal pain, POA Liver is enlarged and echogenic, consistent with liver parenchymal disease, 05/16/2024 Right renal cyst measuring 12 mm, per sono 05/16/2024 New onset hypertension Hyperglycemia Morbid obesity, BMI 41.4 PLAN: MRCP pending HIDA scan pending P.r.n. medications for: Pain management, nausea, vomiting, constipation, fever, hypertension Consult general surgery. Start lisinopril 10 mg p.o. b.i.d. Blood pressure every 4 hours and p.r.n.. Glucometer checks a.c. and HS with insulin regular sliding scale. Monitor renal and liver function. Monitor electrolytes and treat accordingly. DVT and GI prophylaxis. A.m. labs: ATTESTATION BY PHYSICIAN I have seen and examined the patient. I reviewed the documentation, medical decision making, and treatment plan as noted by the mid-level provider above. I agree with the findings and plan of care. Sobeida Quinteros MD, KATARZYNA B QUENCHING MACHINE OPERATOR May 18, 2024 11:15
--- NOTE | 2024-05-18 11:30 | NUR ---
BLOOD GLUCOSE AT 97. NO INSULIN COVERAGE NEEDED AT THIS TIME
[2024-05-18] MEDS ORDERED: GADOTERATE MEGLUMINE 10 MMOL/20 ML VIAL IV ONE (11:32)
--- NOTE | 2024-05-18 14:23 | HMCIMG ---
MRI ABDOMEN WITH AND WITHOUT CONTRAST, INCLUDING MRCP 3-D RECONSTRUCTIONS INDICATION: Right upper abdominal pain. COMPARISON: None. TECHNIQUE: Multisequence multiplanar imaging of the abdomen was obtained with and without IV contrast. Approximately 15 mL of IV Clariscan contrast material was administered for the postcontrast portion of the study. Three-dimensional MRCP was performed using maximum intensity projection reconstructions on the same workstation in order to better delineate the bile duct anatomy. FINDINGS/IMPRESSION: Diagnostic sensitivity of this examination is limited by patient motion artifact. Heart size is normal and visible lungs are clear. Liver, spleen, kidneys, adrenal glands, pancreas, pancreatic duct, stomach, and visible small and large bowel loops appear grossly normal without any intra-abdominal free fluid or lymphadenopathy. Several low signal foci within the slightly distended gallbladder without gallbladder wall thickening or pericholecystic fluid compatible with cholelithiasis without cholecystitis, and no evidence for any intrahepatic or extra hepatic biliary duct dilation or cholelithiasis.
--- NOTE | 2024-05-18 14:57 | CONS ---
GENERAL SURGERY CONSULTATION NOTE DATE OF CONSULTATION: May 18, 2024 TIME OF CONSULTATION: 14:57 CONSULTING SERVICE: Piyush Agrawal MD REQUESTING PHYSICAIN: [ ] REASON FOR CONSULTATION: [ ] HISTORY OF PRESENT ILLNESS: [ ] PAST MEDICAL HISTORY: [ ] PAST SURGICAL HISTORY: [ ] FAMILY HISTORY: [ ] SOCIAL HISTORY: [ ] Current Medications Medications (Trade) Dose Ordered Sig/Odette Route Start Time Stop Time Status Last Admin Dose Admin Insulin Human Regular (humuLIN R 100 UNIT/ML 3ML) INSULIN SLIDING SCAL... 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 PHYSICAL EXAMINATION: GENERAL: [Patient is lying comfortably in bed, not in any obvious distress.] HEAD: [Normal with no signs of head trauma.] EYES: [Not pale not jaundiced afebrile to touch.] ENT: [ Normal.] NECK: [Supple,no tenderness,no lymphadenopathy,no masses,no thyromegaly ,no bruits, no JVD.] LUNGS: [Clear breath sounds bilaterally. No wheezes, rales, or rhonchi.] HEART: [Regular rate and rhythm. Normal S1 and S2, without murmurs, rub or gallop.] VASC: [No edema. Peripheral pulses normal and equal in all extremities.] ABD: [Bowel sounds present,soft, RUQ tender, no masses, no organomegaly.] : [Normal, no suprapubic tenderness.] LYMPH: [No lymphadenopathy noted.] EXT: [ Warm soft, non tender.] SKIN: [ No rashes or lesions.] NEURO: [ Awake Alert and oriented x3.] Vital Signs (last 8hr) Date Time Temp Pulse Resp B/P (MAP) Pulse Ox O2 Delivery O2 Flow Rate FiO2 05/18/24 11:52 98.6 85 18 129/74 100 Room Air 21 05/18/24 11:48 97 Room Air* 0 21 05/18/24 08:00 99.3 83 18 143/67 97 Room Air LABORATORY: [ ] Hematology Labs: Test 05/18/24 04:44 05/17/24 04:54 Range/Units White Blood Count 13.7 #H 4.8-10.8 K/uL Red Blood Count 4.70 4.50-6.20 MIL/uL Hemoglobin 15.5 14.0-18.0 g/dL Hematocrit 44.2 42-54 % Mean Corpuscular Volume 94.0 79-99 fL Mean Corpuscular Hemoglobin 33.0 27.0-33.0 pg Mean Corpuscular Hemoglobin Concent 35.1 32.0-36.0 g/dL Red Cell Distribution Width 12.2 11.0-15.5 % Platelet Count 187 130-400 K/uL Mean Platelet Volume 10.8 H 7.5-10.5 fL Immature Granulocyte % (Auto) 0.3 0-1 % Neutrophils (%) (Auto) 70.5 40.0-77.0 % Lymphocytes (%) (Auto) 18.0 L 21.0-51.0 % Monocytes (%) (Auto) 9.6 3.0-13.0 % Eosinophils (%) (Auto) 1.2 0.0-8.0 % Basophils (%) (Auto) 0.4 0.0-5.0 % Neutrophils # (Auto) 9.7 H 1.8-7.7 K/uL Lymphocytes # (Auto) 2.5 1.0-4.8 K/uL Monocytes # (Auto) 1.3 H 0.1-1.0 K/uL Eosinophils # (Auto) 0.17 0.00-0.70 K/uL Basophils # (Auto) 0.05 0.00-0.20 K/uL Absolute Immature Granulocyte (auto 0.04 0-1 K/uL Nucleated Red Blood Cells 0.0 0.0-0.19 % White Cell Morphology Comment See comments Chemistry Labs: Test 05/18/24 11:12 05/18/24 04:44 05/17/24 04:54 05/16/24 18:58 Range/Units Whole Blood Glucose 97 70-110 MG/DL Sodium Level 135 L 136-145 mmol/L Potassium Level 3.8 3.5-5.1 mmol/L Chloride Level 101 101-111 mmol/L Carbon Dioxide Level 31 21-32 mmol/L Blood Urea Nitrogen 8 7-18 mg/dL Creatinine 1.0 0.5-1.3 mg/dL Glomerular Filtration Rate Calc 103 >90 mL/min Random Glucose 99 70-105 mg/dL Total Calcium 8.5 8.5-10.1 mg/dL Magnesium Level 1.90 1.80-2.40 mg/dL Total Bilirubin 2.4 #H 0.2-1.0 mg/dL Aspartate Amino Transf (AST/SGOT) 17 10-37 U/L Alanine Aminotransferase (ALT/SGPT) 36 12-78 U/L Alkaline Phosphatase 60 50-136 U/L Total Protein 6.9 6.0-8.3 g/dL Albumin 3.1 L 3.5-5.0 g/dL Hemoglobin A1c 5.0 4.0-6.0 % Estimated Average Glucose (eAG) 97 70-126 mg/dL Phosphorus Level 2.9 2.5-4.9 mg/dL Troponin I High Sensitivity < 4 L 4-75 ng/L Thyroid Stimulating Hormone (TSH) 1.09 0.36-3.74 uIU/mL Direct Bilirubin 0.1 0.0-0.3 mg/dL Lipase 36 16-77 U/L DIAGNOSTICS / RADIOLOGY: [Copy/Paste Echos/Imaging Report here] ASSESSMENT: [] PLAN: [] NPO/IVF/IV ANTIOBIOTICS Schedule for OR We talked about various treatment options including but not limited to surgery. We talked about risks and benefits of surgery, patient verbalized understanding has agreed to proceed [ ]. We will schedule [ ]. PIYUSH AGRAWAL MD May 18, 2024 14:57
--- NOTE | 2024-05-18 15:41 | HMCIMG ---
NM HIDA WO EF/CCK REASON: GALLSTONES. COMPARISON: None TECHNIQUE: Hepatobiliary imaging study was performed with 7.5 mCi of technetium Choletec through intravenous route. 2 hour delayed images were obtained. FINDINGS: Normal visualization of bile activity noted within 1 hour. There is nonvisualization of gallbladder activity at 2 hours suggestive of acute cholecystitis in the proper clinical setting. IMPRESSION: There is nonvisualization of gallbladder activity at 2 hours suggestive of acute cholecystitis in the proper clinical setting.
--- NOTE | 2024-05-18 16:30 | NUR ---
BLOOD GLUCOSE AT 118. NO INSULIN COVERAGE NEEDED AT THIS TIME
[2024-05-19] VITALS (7 sets, daily range): BP systolic 120–153; BP diastolic 69–84; PULSE 59–77; RESP 17–19; TEMP 97.7–98.7; O2SAT 94–97
[2024-05-19 05:12] LABS: BASOPHILS # (AUTO) 0.03 K/uL (0.00-0.20); BASOPHILS % (AUTO) 0.3 % (0.0-5.0); EOSINOPHILS # (AUTO) 0.24 K/uL (0.00-0.70); EOSINOPHILS % (AUTO) 2.3 % (0.0-8.0); HEMATOCRIT 42.3 % (42-54); IMMATURE GRANULOCYTE ABSOLUTE 0.03 K/uL (0-1); LYMPHOCYTES # (AUTO) 2.2 K/uL (1.0-4.8); LYMPHOCYTES % (AUTO) 20.9 % (21.0-51.0); MEAN CORPUSCULAR HEMOGLOBIN 32.6 pg (27.0-33.0); MEAN CORPUSCULAR HGB CONC 34.8 g/dL (32.0-36.0); MEAN CORPUSCULAR VOLUME 93.8 fL (79-99); MONOCYTES # (AUTO) 0.9 K/uL (0.1-1.0); MONOCYTES % (AUTO) 8.8 % (3.0-13.0); NEUTROPHILS # (AUTO) 7.2 K/uL (1.8-7.7); NEUTROPHILS % (AUTO) 67.4 % (40.0-77.0); PLATELET COUNT (AUTO) 164 K/uL (130-400); RED BLOOD CELL COUNT(AUTO) 4.51 MIL/uL (4.50-6.20); RED CELL DISTRIBUTION WIDTH 11.9 % (11.0-15.5); WHITE BLOOD COUNT (AUTO) 10.7 K/uL (4.8-10.8)
[2024-05-19 05:30] LABS: ALBUMIN 3.1 g/dL (3.5-5.0); BILIRUBIN,TOTAL 1.9 mg/dL (0.2-1.0); CREATININE 0.9 mg/dL (0.5-1.3); MAGNESIUM 2.1 mg/dL (1.80-2.40); POTASSIUM 3.9 mmol/L (3.5-5.1); TOTAL PROTEIN, SERUM 6.9 g/dL (6.0-8.3)
--- NOTE | 2024-05-19 11:22 | PN ---
[facility] PROGRESS NOTE Date of Service: May 19, 2024 Time of Service: 11:16 SUBJECTIVE: [05/16 Mr. Garvey is a 33-year-old male with a history of gallstones who presented to [facility] ED for evaluation of right upper abdominal pain associated with nausea onset 2 hours [employer]. Patient denies any fevers, vomiting, constipation or diarrhea. Denies any urinary discomfort. Patient reports that he has been to the hospital few for abdominal pain due to gallstones. He reports that he is discharged home and informed that gallbladder surgery is only done for emergencies. The patient presented to the ED with a blood pressure 171/105, heart rate 79, re spirations 18, temperature 99.0 F, 100% on room air. The patient denies any known history of hypertension. Sonogram: Liver is enlarged measuring 19.7 cm. Liver is echogenic consistent with liver parenchymal disease. Gallstones are seen in the gallbladder. Common duct measures 6 mm. No evidence of gallbladder wall thickening is seen. Right kidney measures 13.7 x 5.5 x 5.7 cm. No hydronephrosis is seen of the right kidney. There is right renal cyst measuring 12 mm. IMPRESSION: Gallstones. Borderline ductal dilatation is seen. ED provider request patient be admitted with the diagnosis of cholelithiasis, abdominal pain, nausea. 05/17 patient was seen by nurse practitioner and physician during rounding in room 317 sitting in the chair. Today WBC is 18.9. Magnesium 1.8. Patient continues to be on Zosyn. Which was out of the way showed gallstones. Patient is pending evaluation/further recommendations by surgeon regarding possible cholecystectomy. We will continue to monitor patient in the meantime. A.m. labs. 05/18 PATIENT WAS SEEN BY NURSE PRACTITIONER AND PHYSICIAN DURING ROUNDING IN ROOM 317. Ultrasound abdomen shows that patient has a gallstones. Per surgeon patient is pending HIDA scan and MRCP today. Possible surgery tomorrow in a.m.. Patient continues to be on Zosyn. WBC is trending down today is 13.7. Replace potassium magnesium per protocol. We will continue to monitor patient in the meantime. A.m. labs. 05/19 patient was evaluated in the room, he is sitting on the bed. He complained of right lower quadrant pain with slight nausea. HIDA scan came back positive with a acute cholecystitis. Plan is for lap jamari tomorrow by Dr. Deutsch Patient will be NPO after midnight.] REVIEW OF SYSTEMS CONSTITUTIONAL: Denies fevers, chills, or night sweats. No unintentional weight loss reported. NEUROLOGICAL: Denies headache, amaurosis fugax, motor weakness, sensory deficit, vertigo/spinning sensation, gait abnormalities, or tremors. ENT: No hearing loss, otalgia, otorrhea, rhinitis, rhinorrhea, hoarseness, or sore throat. CARDIOVASCULAR: Denies any exertional angina, dyspnea on exertion, orthopnea, paroxysmal nocturnal dyspnea, palpitations, life-threatening arrhythmias, claudication. PULMONARY: Denies any shortness of breath, cough, phlegm/sputum, hemoptysis, pleuritic chest pain. SLEEP: Denies morning headaches, daytime somnolence or napping. Denies difficulty falling asleep, staying asleep, waking from sleep. Denies knowledge of snoring. GASTROINTESTINAL: Denies any type of dysphagia to either liquids or solids. Denies nausea, vomiting, pyrosis, early satiety, abdominal pain, diarrhea, constipation, or changes in stool consistency or caliber. Denies coffee-ground emesis, hematemesis, hematochezia, or melanotic stools. GENITOURINARY: Denies frequency, urgency, nocturia, hematuria or incontinence (Storage/Irritative symptoms.) Low urinary stream, straining to void, urinary intermittency or hesitancy, splitting of the voiding stream, terminal dribbling. ENDOCRINOLOGIC: Denies polyuria, polydipsia, polyphagia or heat/cold intolerances. HEMATOLOGIC: Denies thrombophilia/previous clots, or coagulopathy/bleeding disorders. ONCOLOGIC: Denies personal history of malignancy. DERMATOLOGIC: Denies rashes or pruritus. PSYCHIATRIC: Denies any suicidal or homicidal ideation. Denies hallucinations. PHYSICAL EXAM GENERAL APPEARANCE: The patient is awake, alert, and oriented, in no acute cardiopulmonary distress. NEUROLOGICAL: Cranial nerves II-XII grossly intact. Motor is 5/5 in bilateral upper and lower extremities proximal to distal. No sensory deficits. HEENT: Face is symmetric. Pupils are equal and reactive. Extraocular movements are intact. NECK: Supple. No JVD. No thyromegaly. No submental, submandibular, pre- /postauricular, occipital or supraclavicular lymphadenopathy. CHEST: Normal chest expansion. No Telemetry. LUNGS: Absence of any rales, rhonchi or any wheezing. CARDIOVASCULAR: Regular. S1 and S2 normal. No appreciable rubs, murmurs or gallops. ABDOMEN: Soft, nontender, and nondistended. There is no rebound, voluntary guarding, or rigidity. : Deferred. No Wen. EXTREMITIES: Non-edematous and not cyanotic. No clubbing. Good capillary refill. SKIN: No skin breakdown. Vital Signs (last 8hr) Date Time Temp Pulse Resp B/P (MAP) Pulse Ox O2 Delivery O2 Flow Rate FiO2 05/19/24 08:00 98.8 68 18 153/84 97 Room Air 05/19/24 07:55 97 Room Air* 0 21 05/19/24 04:00 98.1 77 19 147/83 98 Room Air LABS: Laboratory: Test 05/19/24 10:40 05/19/24 04:50 Range/Units Whole Blood Glucose 111 H 70-110 MG/DL White Blood Count 10.7 4.8-10.8 K/uL Red Blood Count 4.51 4.50-6.20 MIL/uL Hemoglobin 14.7 14.0-18.0 g/dL Hematocrit 42.3 42-54 % Mean Corpuscular Volume 93.8 79-99 fL Mean Corpuscular Hemoglobin 32.6 27.0-33.0 pg Mean Corpuscular Hemoglobin Concent 34.8 32.0-36.0 g/dL Red Cell Distribution Width 11.9 11.0-15.5 % Platelet Count 164 130-400 K/uL Mean Platelet Volume 10.4 7.5-10.5 fL Immature Granulocyte % (Auto) 0.3 0-1 % Neutrophils (%) (Auto) 67.4 40.0-77.0 % Lymphocytes (%) (Auto) 20.9 L 21.0-51.0 % Monocytes (%) (Auto) 8.8 3.0-13.0 % Eosinophils (%) (Auto) 2.3 0.0-8.0 % Basophils (%) (Auto) 0.3 0.0-5.0 % Neutrophils # (Auto) 7.2 1.8-7.7 K/uL Lymphocytes # (Auto) 2.2 1.0-4.8 K/uL Monocytes # (Auto) 0.9 0.1-1.0 K/uL Eosinophils # (Auto) 0.24 0.00-0.70 K/uL Basophils # (Auto) 0.03 0.00-0.20 K/uL Absolute Immature Granulocyte (auto 0.03 0-1 K/uL Nucleated Red Blood Cells 0.0 0.0-0.19 % Sodium Level 140 136-145 mmol/L Potassium Level 3.9 3.5-5.1 mmol/L Chloride Level 104 101-111 mmol/L Carbon Dioxide Level 30 21-32 mmol/L Blood Urea Nitrogen 10 7-18 mg/dL Creatinine 0.9 0.5-1.3 mg/dL Glomerular Filtration Rate Calc 116 >90 mL/min Random Glucose 83 70-105 mg/dL Total Calcium 8.7 8.5-10.1 mg/dL Magnesium Level 2.10 1.80-2.40 mg/dL Total Bilirubin 1.9 H 0.2-1.0 mg/dL Aspartate Amino Transf (AST/SGOT) 25 10-37 U/L Alanine Aminotransferase (ALT/SGPT) 50 12-78 U/L Alkaline Phosphatase 61 50-136 U/L Total Protein 6.9 6.0-8.3 g/dL Albumin 3.1 L 3.5-5.0 g/dL Current Medications Medications (Trade) Dose Ordered Sig/Odette Route PRN Reason Start Time Stop Time Status Last Admin Dose Admin Acetaminophen (TYLenol 325MG TAB) 650 mg Q6H PRN PO FEVER/MILD PAIN LEVEL 1-3 05/16/24 23:30 06/15/24 23:29 Acetaminophen (TYLenol 650MG SUPPOSITORY) 650 mg Q6H PRN RC FEVER / MILD PAIN 1-3 IF NPO 05/16/24 23:30 06/15/24 23:29 Docusate Sodium (COLace 100MG CAP) 100 mg BID PRN PO CONSTIPATION 05/16/24 23:30 06/15/24 23:29 Hydralazine HCl (APRESOLine 20MG INJ) 10 mg Q2H PRN IV SBP GREATER THAN 160 05/16/24 23:30 05/17/24 11:27 DC 05/17/24 00:21 10 MG Hydralazine HCl (APRESOLine 20MG INJ) 10 mg Q6H6 PRN IV SBP GREATER THAN 150 05/17/24 11:30 06/15/24 23:29 05/17/24 17:10 10 MG Insulin Human Regular (humuLIN R 100 UNIT/ML 3ML) INSULIN SLIDING SCAL... ACHS SQ 05/17/24 07:30 06/16/24 07:29 Ketorolac Tromethamine (toRADol) 30 mg Q6H PRN IVP SEVERE PAIN (7-10) 05/17/24 04:30 05/22/24 04:29 05/19/24 09:48 30 MG Lactated Ringer's 1,000 ml @ 75 mls/hr [id number] IV 05/16/24 23:30 06/15/24 23:29 05/19/24 04:15 75 MLS/HR Lactulose (Constulose 20gm/ 30ml Udcup) 20 gm Q6H PRN PO CONSTIPATION 05/16/24 23:30 06/15/24 23:29 Lisinopril (Prinivil 10mg) 10 mg BID PO 05/17/24 03:15 06/16/24 03:14 05/19/24 09:49 10 MG Morphine Sulfate (morPHINE 2MG SYG) 2 mg Q6H6 PRN IVP SEVERE PAIN (7-10) 05/17/24 11:30 05/24/24 11:29 Ondansetron HCl (zoFRAN 4MG INJ) 4 mg Q6H PRN IVP NAUSEA/VOMITING 05/16/24 23:30 06/15/24 23:29 Piperacillin Sod/ Tazobactam Sod (Zosyn 3.375gm+NS 50ml) 3.375 gm Q12H IVPB 05/16/24 23:30 05/26/24 23:29 05/18/24 23:54 3.375 GM Temazepam (restORIL 15 MG CAP) 15 mg HS PRN PO INSOMNIA/SLEEP 05/16/24 23:30 06/15/24 23:29 DIAGNOSTICS / RADIOLOGY: [ ] ASSESSMENT: Cholelithiasis with common ductal dilatation, per abdominal sono on 05/16/2024 Recurrent abdominal pain, POA Liver is enlarged and echogenic, consistent with liver parenchymal disease, 05/16/2024 Right renal cyst measuring 12 mm, per sono 05/16/2024 New onset hypertension Hyperglycemia Morbid obesity, BMI 41.4 PLAN: MRCP pending HIDA scan pending P.r.n. medications for: Pain management, nausea, vomiting, constipation, fever, hypertension Consult general surgery. Start lisinopril 10 mg p.o. b.i.d. Blood pressure every 4 hours and p.r.n.. Glucometer checks a.c. and HS with insulin regular sliding scale. Monitor renal and liver function. Monitor electrolytes and treat accordingly. DVT and GI prophylaxis. A.m. labs: ATTESTATION BY PHYSICIAN I have seen and examined the patient. I reviewed the documentation, medical decision making, and treatment plan as noted by the mid-level provider above. I agree with the findings and plan of care. Sobeida Norris MD, [facility] May 19, 2024 11:22
--- NOTE | 2024-05-19 11:30 | NUR ---
BLOOD GLUCOSE AT 111. NO INSULIN COVERAGE NEEDED AT THIS TIME.
--- NOTE | 2024-05-19 13:00 | NUR ---
FAXED ORDERS FOR PROCEDURE TO [facility].
--- NOTE | 2024-05-19 16:30 | NUR ---
BLOOD GLUCOSE AT 92. NO INSULIN COVERAGE NEEDED AT THIS TIME.
--- NOTE | 2024-05-19 18:25 | NUR ---
OBTAINED CONSENT FOR ROBOTIC LAPAROSCOPIC CHOLECYSTECTOMY POSSIBLE ROBOTIC WITH DR. PICKETT FOR TOMORROW IN AM.
[2024-05-20] VITALS (30 sets, daily range): BP systolic 123–169; BP diastolic 51–92; PULSE 74–109; RESP 15–19; TEMP 98.1–98.6; O2SAT 96–97
--- NOTE | 2024-05-20 02:59 | NUR ---
PATIENT UPDATE REINFORCED NPO POST MN, PT GOING FOR ROBOTIC ASSISTED LAPAROSCOPIC LAP SHARON, POSSIBLE OPEN.NO COMPLAINTS OF PAIN, NO NAUSEA NOR VOMITING, UP AD JACK, MOTHER WITH THE PT AT THE BEDSIDE. VITAL SIGNS STABLE.
[2024-05-20 05:49] LABS: HEMATOCRIT 43.6 % (42-54); MEAN CORPUSCULAR HEMOGLOBIN 32.8 pg (27.0-33.0); MEAN CORPUSCULAR HGB CONC 35.1 g/dL (32.0-36.0); MEAN CORPUSCULAR VOLUME 93.6 fL (79-99); RED BLOOD CELL COUNT(AUTO) 4.66 MIL/uL (4.50-6.20); RED CELL DISTRIBUTION WIDTH 11.9 % (11.0-15.5)
[2024-05-20 06:03] LABS: POTASSIUM 4.1 mmol/L (3.5-5.1)
--- NOTE | 2024-05-20 09:55 | PN ---
[facility] PROGRESS NOTE Date of Service: May 20, 2024 Time of Service: 09:53 SUBJECTIVE: [05/16 Mr. 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 Patient denies any fevers, vomiting, constipation or diarrhea. Denies any urinary discomfort. Patient reports that he has been to the hospital few for abdominal pain due to gallstones. He reports that he is discharged home and informed that gallbladder surgery is only done for emergencies. The patient presented to the ED with a blood pressure 171/105, heart rate 79, re spirations 18, temperature 99.0 F, 100% on room air. The patient denies any known history of hypertension. Sonogram: Liver is enlarged measuring 19.7 cm. Liver is echogenic consistent with liver parenchymal disease. Gallstones are seen in the gallbladder. Common duct measures 6 mm. No evidence of gallbladder wall thickening is seen. Right kidney measures 13.7 x 5.5 x 5.7 cm. No hydronephrosis is seen of the right kidney. There is right renal cyst measuring 12 mm. IMPRESSION: Gallstones. Borderline ductal dilatation is seen. ED provider request patient be admitted with the diagnosis of cholelithiasis, abdominal pain, nausea. 05/17 patient was seen by nurse practitioner and physician during rounding in room 317 sitting in the chair. Today WBC is 18.9. Magnesium 1.8. Patient continues to be on Zosyn. Which was out of the way showed gallstones. Patient is pending evaluation/further recommendations by surgeon regarding possible cholecystectomy. We will continue to monitor patient in the meantime. A.m. labs. 05/18 PATIENT WAS SEEN BY NURSE PRACTITIONER AND PHYSICIAN DURING ROUNDING IN ROOM 317. Ultrasound abdomen shows that patient has a gallstones. Per surgeon patient is pending HIDA scan and MRCP today. Possible surgery tomorrow in a.m.. Patient continues to be on Zosyn. WBC is trending down today is 13.7. Replace potassium magnesium per protocol. We will continue to monitor patient in the meantime. A.m. labs. 05/19 patient was evaluated in the room, he is sitting on the bed. He complained of right lower quadrant pain with slight nausea. HIDA scan came back positive with a acute cholecystitis. Plan is for lap jamari tomorrow by Dr. Deutsch Patient will be NPO after midnight.] 05/20 patient was evaluated in the room. Patient is scheduled for lap jamari today. He is having elevated blood pressure, received hydralazine 10 mg IV at 8:25 a.m. this morning. We will continue to monitor. We will follow up post surgery. REVIEW OF SYSTEMS CONSTITUTIONAL: Denies fevers, chills, or night sweats. No unintentional weight loss reported. NEUROLOGICAL: Denies headache, amaurosis fugax, motor weakness, sensory deficit, vertigo/spinning sensation, gait abnormalities, or tremors. ENT: No hearing loss, otalgia, otorrhea, rhinitis, rhinorrhea, hoarseness, or sore throat. CARDIOVASCULAR: Denies any exertional angina, dyspnea on exertion, orthopnea, paroxysmal nocturnal dyspnea, palpitations, life-threatening arrhythmias, claudication. PULMONARY: Denies any shortness of breath, cough, phlegm/sputum, hemoptysis, pleuritic chest pain. SLEEP: Denies morning headaches, daytime somnolence or napping. Denies difficulty falling asleep, staying asleep, waking from sleep. Denies knowledge of snoring. GASTROINTESTINAL: Denies any type of dysphagia to either liquids or solids. Denies nausea, vomiting, pyrosis, early satiety, abdominal pain, diarrhea, constipation, or changes in stool consistency or caliber. Denies coffee-ground emesis, hematemesis, hematochezia, or melanotic stools. GENITOURINARY: Denies frequency, urgency, nocturia, hematuria or incontinence (Storage/Irritative symptoms.) Low urinary stream, straining to void, urinary intermittency or hesitancy, splitting of the voiding stream, terminal dribbling. ENDOCRINOLOGIC: Denies polyuria, polydipsia, polyphagia or heat/cold intolerances. HEMATOLOGIC: Denies thrombophilia/previous clots, or coagulopathy/bleeding disorders. ONCOLOGIC: Denies personal history of malignancy. DERMATOLOGIC: Denies rashes or pruritus. PSYCHIATRIC: Denies any suicidal or homicidal ideation. Denies hallucinations. PHYSICAL EXAM GENERAL APPEARANCE: The patient is awake, alert, and oriented, in no acute cardiopulmonary distress. NEUROLOGICAL: Cranial nerves II-XII grossly intact. Motor is 5/5 in bilateral upper and lower extremities proximal to distal. No sensory deficits. HEENT: Face is symmetric. Pupils are equal and reactive. Extraocular movements are intact. NECK: Supple. No JVD. No thyromegaly. No submental, submandibular, pre- /postauricular, occipital or supraclavicular lymphadenopathy. CHEST: Normal chest expansion. No Telemetry. LUNGS: Absence of any rales, rhonchi or any wheezing. CARDIOVASCULAR: Regular. S1 and S2 normal. No appreciable rubs, murmurs or gallops. ABDOMEN: Soft, nontender, and nondistended. There is no rebound, voluntary guarding, or rigidity. : Deferred. No Wen. EXTREMITIES: Non-edematous and not cyanotic. No clubbing. Good capillary refill. SKIN: No skin breakdown. Vital Signs (last 8hr) Date Time Temp Pulse Resp B/P (MAP) Pulse Ox O2 Delivery O2 Flow Rate FiO2 05/20/24 09:46 97 Room Air* 0 21 05/20/24 08:00 98.4 81 18 159/91 99 Room Air 21 05/20/24 04:00 98.1 74 16 169/81 98 Room Air LABS: Laboratory: Test 05/20/24 05:37 05/20/24 04:47 05/19/24 04:50 Range/Units White Blood Count 9.0 4.8-10.8 K/uL Red Blood Count 4.66 4.50-6.20 MIL/uL Hemoglobin 15.3 14.0-18.0 g/dL Hematocrit 43.6 42-54 % Mean Corpuscular Volume 93.6 79-99 fL Mean Corpuscular Hemoglobin 32.8 27.0-33.0 pg Mean Corpuscular Hemoglobin Concent 35.1 32.0-36.0 g/dL Red Cell Distribution Width 11.9 11.0-15.5 % Platelet Count 193 130-400 K/uL Mean Platelet Volume 10.1 7.5-10.5 fL Nucleated Red Blood Cells 0.0 0.0-0.19 % Sodium Level 141 136-145 mmol/L Potassium Level 4.1 3.5-5.1 mmol/L Chloride Level 105 101-111 mmol/L Carbon Dioxide Level 30 21-32 mmol/L Blood Urea Nitrogen 5 L 7-18 mg/dL Creatinine 1.0 0.5-1.3 mg/dL Glomerular Filtration Rate Calc 103 >90 mL/min Random Glucose 94 70-105 mg/dL Total Calcium 8.8 8.5-10.1 mg/dL Whole Blood Glucose 90 70-110 MG/DL Immature Granulocyte % (Auto) 0.3 0-1 % Neutrophils (%) (Auto) 67.4 40.0-77.0 % Lymphocytes (%) (Auto) 20.9 L 21.0-51.0 % Monocytes (%) (Auto) 8.8 3.0-13.0 % Eosinophils (%) (Auto) 2.3 0.0-8.0 % Basophils (%) (Auto) 0.3 0.0-5.0 % Neutrophils # (Auto) 7.2 1.8-7.7 K/uL Lymphocytes # (Auto) 2.2 1.0-4.8 K/uL Monocytes # (Auto) 0.9 0.1-1.0 K/uL Eosinophils # (Auto) 0.24 0.00-0.70 K/uL Basophils # (Auto) 0.03 0.00-0.20 K/uL Absolute Immature Granulocyte (auto 0.03 0-1 K/uL Magnesium Level 2.10 1.80-2.40 mg/dL Total Bilirubin 1.9 H 0.2-1.0 mg/dL Aspartate Amino Transf (AST/SGOT) 25 10-37 U/L Alanine Aminotransferase (ALT/SGPT) 50 12-78 U/L Alkaline Phosphatase 61 50-136 U/L Total Protein 6.9 6.0-8.3 g/dL Albumin 3.1 L 3.5-5.0 g/dL Current Medications Medications (Trade) Dose Ordered Sig/Odette Route PRN Reason Start Time Stop Time Status Last Admin Dose Admin Acetaminophen (TYLenol 325MG TAB) 650 mg Q6H PRN PO FEVER/MILD PAIN LEVEL 1-3 05/16/24 23:30 06/15/24 23:29 Acetaminophen (TYLenol 650MG SUPPOSITORY) 650 mg Q6H PRN RC FEVER / MILD PAIN 1-3 IF NPO 05/16/24 23:30 06/15/24 23:29 Docusate Sodium (COLace 100MG CAP) 100 mg BID PRN PO CONSTIPATION 05/16/24 23:30 06/15/24 23:29 Hydralazine HCl (APRESOLine 20MG INJ) 10 mg Q2H PRN IV SBP GREATER THAN 160 05/16/24 23:30 05/17/24 11:27 DC 05/17/24 00:21 10 MG Hydralazine HCl (APRESOLine 20MG INJ) 10 mg Q6H6 PRN IV SBP GREATER THAN 150 05/17/24 11:30 06/15/24 23:29 05/20/24 08:25 10 MG Insulin Human Regular (humuLIN R 100 UNIT/ML 3ML) INSULIN SLIDING SCAL... ACHS SQ 05/17/24 07:30 06/16/24 07:29 Ketorolac Tromethamine (toRADol) 30 mg Q6H PRN IVP SEVERE PAIN (7-10) 05/17/24 04:30 05/22/24 04:29 05/20/24 08:51 30 MG Lactated Ringer's 1,000 ml @ 75 mls/hr [id number] IV 05/16/24 23:30 06/15/24 23:29 05/19/24 21:33 75 MLS/HR Lactulose (Constulose 20gm/ 30ml Udcup) 20 gm Q6H PRN PO CONSTIPATION 05/16/24 23:30 06/15/24 23:29 Lisinopril (Prinivil 10mg) 10 mg BID PO 05/17/24 03:15 06/16/24 03:14 05/19/24 21:28 10 MG Morphine Sulfate (morPHINE 2MG SYG) 2 mg Q6H6 PRN IVP SEVERE PAIN (7-10) 05/17/24 11:30 05/24/24 11:29 Ondansetron HCl (zoFRAN 4MG INJ) 4 mg Q6H PRN IVP NAUSEA/VOMITING 05/16/24 23:30 06/15/24 23:29 Piperacillin Sod/ Tazobactam Sod (Zosyn 3.375gm+NS 50ml) 3.375 gm Q12H IVPB 05/16/24 23:30 05/26/24 23:29 05/20/24 00:13 3.375 GM Temazepam (restORIL 15 MG CAP) 15 mg HS PRN PO INSOMNIA/SLEEP 05/16/24 23:30 06/15/24 23:29 DIAGNOSTICS / RADIOLOGY: [ ] ASSESSMENT: Cholelithiasis with common ductal dilatation, per abdominal sono on 05/16/2024 Recurrent abdominal pain, POA Liver is enlarged and echogenic, consistent with liver parenchymal disease, 05/16/2024 Right renal cyst measuring 12 mm, per sono 05/16/2024 New onset hypertension Hyperglycemia Morbid obesity, BMI 41.4 PLAN: Continue with medical surgical admission He is currently NPO Continue with P.r.n. medications for: Pain management, nausea, vomiting, constipation, fever, hypertension Appreciate General surgery for recommendation, patient is for lap jamari today Continue lisinopril 10 mg p.o. b.i.d. Blood pressure every 4 hours and p.r.n.. Glucometer checks a.c. and HS with insulin regular sliding scale. Monitor renal and liver function. Monitor electrolytes and treat accordingly. DVT and GI prophylaxis. A.m. labs: ATTESTATION BY PHYSICIAN I have seen and examined the patient. I reviewed the documentation, medical decision making, and treatment plan as noted by the mid-level provider above. I agree with the findings and plan of care. Sobeida Norris MD, JANICE B BANNER MD [facility] May 20, 2024 09:55
[2024-05-20] MEDS ORDERED: MIDAZOLAM HCL 1 MG/ML 2ML VIAL ONE (10:01)
[2024-05-20] MEDS ORDERED: SUCCINYLCHOLINE CHLORIDE 20 MG/ML 10 ML VIAL ONE (10:01)
[2024-05-20] MEDS ORDERED: proPOFol 10 MG/ML 20ML VIAL IV ONE (10:01)
[2024-05-20] MEDS ORDERED: LIDOCAINE PF 100MG/5ML (2%) SYRINGE 5ML ONE (10:01)
[2024-05-20] MEDS ORDERED: FENTanyl CITRate PF 50 MCG/1 ML 2ML VIAL ONE (10:02)
[2024-05-20] MEDS ORDERED: ondanSETRON 4MG INJ ONE (10:02)
[2024-05-20] MEDS ORDERED: rocuRONium bROMide 10MG/1ML 5ML VL ONE (10:02)
[2024-05-20] MEDS: INDOCYANINE GREEN 25 MG VIAL IJ ONE (10:34)
[2024-05-20] MEDS: LIDOCAINE 1%-EPI 1:100,000 20 ML VIAL ONE (11:05)
[2024-05-20] MEDS: BUPIvacaine/PF 0.5% 30ML VIAL ONE (11:05)
[2024-05-20] MEDS ORDERED: ePHEDrine SULFate 50 MG/ML AMPULE ONE (11:29)
[2024-05-20] MEDS: SUGAMMADEX SODIUM 200 MG/2 ML VIAL IV ONE (11:30)
[2024-05-20] MEDS: rocuRONium bROMide 10MG/1ML 5ML VL ONE (12:07)
--- NOTE | 2024-05-20 13:39 | OP ---
OP Procedure: Robotic Maisha OP Procedure Note OPERATIVE PROCEDURE NOTE DATE OF SERVICE: May 20, 2024 PREOPERATIVE DIAGNOSIS: [ ] POSTOPERATIVE DIAGNOSIS: [ ] PROCEDURES PREFORMED: 1. Robotic Cholecystectomy SURGEON: Piyush Agrawal MD ANESTHESIA: General. ESTIMATED BLOOD LOSS: Minimal. SPECIMEN(S) REMOVED: Gallbladder. FINDINGS: Very enlarged tense gallbladder moderate right upper quadrant inflammatory adhesions COMPLICATIONS: None. DESCRIPTION OF PROCEDURE: The patient was brought into the Operating Room. After proper identification, the patient was placed on the operating table in the supine position. General anesthesia was then administered and the patient was endotracheally intubated. Attention was then focussed in the area of the abdomen. The same was prepped and draped in the usual sterile fashion. An appropriate time-out was then carried out at this point. Then, I proceeded by making an incision in the infraumbilical region. The incision was carried through skin and subcutaneous tissue until the fascia was identified. The fascia was then carefully incised and the stay stitches were placed on either side of the fascia and the Mitul port was then introduced. CO2 was insufflated into the abdomen and the robotic camera was then introduced. Inspection of the abdomen did not show any anterior abdominal wall adhesions. The gallbladder was noted to be enlarged and tense with evidence of moderate right upper quadrant inflammatory adhesions. So at this point, I proceeded by placing the left-sided port and also the right-sided port under vision and my library clerical assistant; port was then placed right-sided lateral. So, at this point, the patient was then placed in slight reverse Trendelenburg position and rotated to his left. The robot was then brought in and then we proceeded by docking the robot with no difficulty. Once the robot was docked and everything looked fine, I proceeded by going into the console area. My library clerical assistant, then grasped the fundus of the gallbladder and the same was retracted cephalad and using the grasper and the robotic [ ], I proceeded by taking down the inflammatory adhesions in the right upper quadrant. At the infundibulum, I proceeded by grasping the infundibulum, I proceeded by carefully opening the peritoneum covering the triangle of Calot and I was able to expose the cystic duct and the cystic artery. Each of these structures were then skeletonized for a distance of about 2 cm and then I proceeded by placing clips; proximal and distal clips on each of these structures. Using the robotic scissors, I proceeded by transecting these 2 structures. The gallbladder was then removed from the gallbladder fossa using the robotic cautery all the way down until I was able to remove it at the fundus as well. Further inspection did not reveal any other pathology. Hemostasis was noted to be adequate. So, at this point, the robot was then undocked. I scrubbed in and the gallbladder was then extracted from the abdomen using an Endopouch. Copious amount of irrigation was carried out at this point. Hemostasis was noted to be adequate. Then, I proceeded by closing the wound. Ports were withdrawn under vision. CO2 was let out of the abdomen. The infraumbilical fascia was approximated together using 0 Vicryl [id number] stitches and the skin was approximated together using 4-0 Monocryl subcuticular closure. Steri-Strips and sterile dressings were then applied. Instrument and sponges count was found correct x2. The patient was then woken up, extubated and taken to Recovery Room in stable condition. The patient tolerated the procedure well. PIYUSH AGRAWAL MD May 20, 2024 13:39
[2024-05-20] MEDS: MEPERIDINE-PF 25 MG/ML SYG ONE ×2 (13:41→13:51)
[2024-05-20] MEDS: hydroMORPHone 1 MG INJ IVP PRN (17:07)
[2024-05-21] VITALS (7 sets, daily range): BP systolic 131–155; BP diastolic 67–86; PULSE 74–82; RESP 16–18; TEMP 97.8–98.7; O2SAT 97–98
[2024-05-21] MEDS: oxyCODONE/aceTAMIN 5/325MG TAB PO PRN (05:38)
[2024-05-21 06:01] LABS: BASOPHILS # (AUTO) 0.02 K/uL (0.00-0.20); BASOPHILS % (AUTO) 0.2 % (0.0-5.0); EOSINOPHILS # (AUTO) 0.05 K/uL (0.00-0.70); EOSINOPHILS % (AUTO) 0.4 % (0.0-8.0); HEMATOCRIT 44.2 % (42-54); IMMATURE GRANULOCYTE ABSOLUTE 0.03 K/uL (0-1); LYMPHOCYTES # (AUTO) 1.9 K/uL (1.0-4.8); LYMPHOCYTES % (AUTO) 15.1 % (21.0-51.0); MEAN CORPUSCULAR HEMOGLOBIN 32.3 pg (27.0-33.0); MEAN CORPUSCULAR HGB CONC 34.2 g/dL (32.0-36.0); MEAN CORPUSCULAR VOLUME 94.4 fL (79-99); MONOCYTES # (AUTO) 0.9 K/uL (0.1-1.0); MONOCYTES % (AUTO) 7.2 % (3.0-13.0); NEUTROPHILS # (AUTO) 9.5 K/uL (1.8-7.7); NEUTROPHILS % (AUTO) 76.9 % (40.0-77.0); PLATELET COUNT (AUTO) 242 K/uL (130-400); RED BLOOD CELL COUNT(AUTO) 4.68 MIL/uL (4.50-6.20); RED CELL DISTRIBUTION WIDTH 11.9 % (11.0-15.5); WHITE BLOOD COUNT (AUTO) 12.3 K/uL (4.8-10.8)
[2024-05-21 06:40] LABS: ALBUMIN 3.4 g/dL (3.5-5.0); BILIRUBIN,DIRECT 0.2 mg/dL (0.0-0.3); BILIRUBIN,TOTAL 1.2 mg/dL (0.2-1.0); POTASSIUM 3.7 mmol/L (3.5-5.1); TOTAL PROTEIN, SERUM 7.7 g/dL (6.0-8.3)
--- NOTE | 2024-05-21 09:03 | DS ---
Discharge Summary Hospital Course Summary: Patient seen and examined in room 317 PCP self-referral Admitting date 05/16/2024 S/p robotic cholecystectomy Today on bedside evaluation patient was found awake alert and oriented x 3. The power chart reviewed, vital signs, laboratory tests, imaging test and medications have been reviewed. Latest vital signs are stable. Afebrile. CBC and CMP are stable. Total bilirubin is downtrending now at 1.2. Patient started on IV Zosyn and tolerated. Currently on full liquid diet and also tolerating. Has had bowel movements and good urine output after procedure. Medically stable for discharge. We will transition from IV Zosyn to Augmentin p.o.875 mg p.o. b.i.d. x5 days for prophylactic treatment. Store Standards Associate(s): General surgeon Dr. Deutsch Procedure(s): Robotic cholecystectomy 05/20/[address] Deutsch Assessment/Plan: ASSESSMENT: Cholelithiasis with common ductal dilatation, per abdominal sono on 05/16/2024 Recurrent abdominal pain, POA Liver is enlarged and echogenic, consistent with liver parenchymal disease, 05/16/2024 Right renal cyst measuring 12 mm, per sono 05/16/2024 New onset hypertension Hyperglycemia Morbid obesity, BMI 41.4 PLAN: Admitted to the medical surgical Advancing diet, currently on full liquid diet and tolerating Continue with P.r.n. medications for: Pain management, nausea, vomiting, constipation, fever, hypertension S/p robotic cholecystectomy Transitioning IV Zosyn to Augmentin p.o. Continue lisinopril 10 mg p.o. b.i.d. Blood pressure every 4 hours and p.r.n.. Glucometer checks a.c. and HS with insulin regular sliding scale. Monitor renal and liver function. Monitor electrolytes and treat accordingly. DVT and GI prophylaxis. Discharge Instructions: Okay to discharge home. Follow up with PCP in 2-3 days for continued evaluation. Follow up with general surgeon in two weeks for pathology report. Continue [id number] mg p.o. b.i.d. x5 days. Continue to advance diet as tolerated. This case was discussed with Dr. Baugh and above plan was formulated Home Medications: No Active Prescriptions or Reported Meds Time spent arranging discharge: 31-60 minutes OFE BERNABE May 21, 2024 09:03
[2024-05-21] MEDS ORDERED: AMOX1TAB16 PO (09:05)
--- NOTE | 2024-05-21 12:35 | PN ---
[facility] PROGRESS NOTE Date of Service: May 21, 2024 Time of Service: 12:35 SUBJECTIVE: [05/16 Mr. Garvey is a 33-year-old male with a history of gallstones who presented to [facility] ED for evaluation of right upper abdominal pain associated with nausea onset 2 hours [employer]. Patient denies any fevers, vomiting, constipation or diarrhea. Denies any urinary discomfort. Patient reports that he has been to the hospital few for abdominal pain due to gallstones. He reports that he is discharged home and informed that gallbladder surgery is only done for emergencies. The patient presented to the ED with a blood pressure 171/105, heart rate 79, respirations 18, temperature 99.0 F, 100% on room air. The patient denies any known history of hypertension. Sonogram: Liver is enlarged measuring 19.7 cm. Liver is echogenic consistent with liver parenchymal disease. Gallstones are seen in the gallbladder. Common duct measures 6 mm. No evidence of gallbladder wall thickening is seen. Right kidney measures 13.7 x 5.5 x 5.7 cm. No hydronephrosis is seen of the right kidney. There is right renal cyst measuring 12 mm. IMPRESSION: Gallstones. Borderline ductal dilatation is seen. ED provider request patient be admitted with the diagnosis of cholelithiasis, abdominal pain, nausea. 05/17 patient was seen by nurse practitioner and physician during rounding in room 317 sitting in the chair. Today WBC is 18.9. Magnesium 1.8. Patient continues to be on Zosyn. Which was out of the way showed gallstones. Patient is pending evaluation/further recommendations by surgeon regarding possible cholecystectomy. We will continue to monitor patient in the meantime. A.m. labs. 05/18 PATIENT WAS SEEN BY NURSE PRACTITIONER AND PHYSICIAN DURING ROUNDING IN ROOM 317. Ultrasound abdomen shows that patient has a gallstones. Per surgeon patient is pending HIDA scan and MRCP today. Possible surgery tomorrow in a.m.. Patient continues to be on Zosyn. WBC is trending down today is 13.7. Replace potassium magnesium per protocol. We will continue to monitor patient in the meantime. A.m. labs. 05/19 patient was evaluated in the room, he is sitting on the bed. He complained of right lower quadrant pain with slight nausea. HIDA scan came back positive with a acute cholecystitis. Plan is for lap jamari tomorrow by Dr. Deutsch Patient will be NPO after midnight.] 05/20 patient was evaluated in the room. Patient is scheduled for lap jamari today. He is having elevated blood pressure, received hydralazine 10 mg IV at 8:25 a.m. this morning. We will continue to monitor. We will follow up post surgery. 05/21 s/p robotic cholecystectomy on 05/20/2024. Today at bedside evaluation patient is alert and oriented x3. Family is at bedside. Latest vitals and labs are stable. Continues with SHERRIE drain. Reported output so far is 40 mL. General surgeon clears patient for discharge tomorrow. Discussed plan with patient. REVIEW OF SYSTEMS CONSTITUTIONAL: Denies fevers, chills, or night sweats. No unintentional weight loss reported. NEUROLOGICAL: Denies headache, amaurosis fugax, motor weakness, sensory deficit, vertigo/spinning sensation, gait abnormalities, or tremors. ENT: No hearing loss, otalgia, otorrhea, rhinitis, rhinorrhea, hoarseness, or sore throat. CARDIOVASCULAR: Denies any exertional angina, dyspnea on exertion, orthopnea, paroxysmal nocturnal dyspnea, palpitations, life-threatening arrhythmias, claudication. PULMONARY: Denies any shortness of breath, cough, phlegm/sputum, hemoptysis, pleuritic chest pain. SLEEP: Denies morning headaches, daytime somnolence or napping. Denies difficulty falling asleep, staying asleep, waking from sleep. Denies knowledge of snoring. GASTROINTESTINAL: Denies any type of dysphagia to either liquids or solids. Denies nausea, vomiting, pyrosis, early satiety, abdominal pain, diarrhea, constipation, or changes in stool consistency or caliber. Denies coffee-ground emesis, hematemesis, hematochezia, or melanotic stools. GENITOURINARY: Denies frequency, urgency, nocturia, hematuria or incontinence (Storage/Irritative symptoms.) Low urinary stream, straining to void, urinary intermittency or hesitancy, splitting of the voiding stream, terminal dribbling. ENDOCRINOLOGIC: Denies polyuria, polydipsia, polyphagia or heat/cold intolerances. HEMATOLOGIC: Denies thrombophilia/previous clots, or coagulopathy/bleeding disorders. ONCOLOGIC: Denies personal history of malignancy. DERMATOLOGIC: Denies rashes or pruritus. PSYCHIATRIC: Denies any suicidal or homicidal ideation. Denies hallucinations. PHYSICAL EXAM GENERAL APPEARANCE: The patient is awake, alert, and oriented, in no acute cardiopulmonary distress. NEUROLOGICAL: Cranial nerves II-XII grossly intact. Motor is 5/5 in bilateral upper and lower extremities proximal to distal. No sensory deficits. HEENT: Face is symmetric. Pupils are equal and reactive. Extraocular movements are intact. NECK: Supple. No JVD. No thyromegaly. No submental, submandibular, pre- /postauricular, occipital or supraclavicular lymphadenopathy. CHEST: Normal chest expansion. No Telemetry. LUNGS: Absence of any rales, rhonchi or any wheezing. CARDIOVASCULAR: Regular. S1 and S2 normal. No appreciable rubs, murmurs or gallops. ABDOMEN: Soft, nontender, and nondistended. There is no rebound, voluntary guarding, or rigidity. : Deferred. No Wen. EXTREMITIES: Non-edematous and not cyanotic. No clubbing. Good capillary refill. SKIN: No skin breakdown. Vital Signs (last 8hr) Date Time Temp Pulse Resp B/P (MAP) Pulse Ox O2 Delivery O2 Flow Rate FiO2 05/21/24 12:00 97.9 74 141/75 97 Room Air 05/21/24 08:00 98.1 82 18 147/86 97 05/21/24 08:00 97 Room Air* 0 21 LABS: Laboratory: Test 05/21/24 11:30 05/21/24 05:31 Range/Units Whole Blood Glucose 102 70-110 MG/DL White Blood Count 12.3 #H 4.8-10.8 K/uL Red Blood Count 4.68 4.50-6.20 MIL/uL Hemoglobin 15.1 14.0-18.0 g/dL Hematocrit 44.2 42-54 % Mean Corpuscular Volume 94.4 79-99 fL Mean Corpuscular Hemoglobin 32.3 27.0-33.0 pg Mean Corpuscular Hemoglobin Concent 34.2 32.0-36.0 g/dL Red Cell Distribution Width 11.9 11.0-15.5 % Platelet Count 242 # 130-400 K/uL Mean Platelet Volume 10.5 7.5-10.5 fL Immature Granulocyte % (Auto) 0.2 0-1 % Neutrophils (%) (Auto) 76.9 40.0-77.0 % Lymphocytes (%) (Auto) 15.1 L 21.0-51.0 % Monocytes (%) (Auto) 7.2 3.0-13.0 % Eosinophils (%) (Auto) 0.4 0.0-8.0 % Basophils (%) (Auto) 0.2 0.0-5.0 % Neutrophils # (Auto) 9.5 H 1.8-7.7 K/uL Lymphocytes # (Auto) 1.9 1.0-4.8 K/uL Monocytes # (Auto) 0.9 0.1-1.0 K/uL Eosinophils # (Auto) 0.05 0.00-0.70 K/uL Basophils # (Auto) 0.02 0.00-0.20 K/uL Absolute Immature Granulocyte (auto 0.03 0-1 K/uL Nucleated Red Blood Cells 0.0 0.0-0.19 % Sodium Level 139 136-145 mmol/L Potassium Level 3.7 3.5-5.1 mmol/L Chloride Level 100 L 101-111 mmol/L Carbon Dioxide Level 29 21-32 mmol/L Blood Urea Nitrogen 5 L 7-18 mg/dL Creatinine 1.0 0.5-1.3 mg/dL Glomerular Filtration Rate Calc 103 >90 mL/min Random Glucose 114 H 70-105 mg/dL Total Calcium 8.9 8.5-10.1 mg/dL Total Bilirubin 1.2 H 0.2-1.0 mg/dL Direct Bilirubin 0.2 0.0-0.3 mg/dL Aspartate Amino Transf (AST/SGOT) 47 H 10-37 U/L Alanine Aminotransferase (ALT/SGPT) 64 12-78 U/L Alkaline Phosphatase 59 50-136 U/L Total Protein 7.7 6.0-8.3 g/dL Albumin 3.4 L 3.5-5.0 g/dL Current Medications Medications (Trade) Dose Ordered Sig/Odette Route PRN Reason Start Time Stop Time Status Last Admin Dose Admin Acetaminophen (TYLenol 325MG TAB) 650 mg Q6H PRN PO FEVER/MILD PAIN LEVEL 1-3 05/16/24 23:30 06/15/24 23:29 Acetaminophen (TYLenol 650MG SUPPOSITORY) 650 mg Q6H PRN RC FEVER / MILD PAIN 1-3 IF NPO 05/16/24 23:30 06/15/24 23:29 Docusate Sodium (COLace 100MG CAP) 100 mg BID PRN PO CONSTIPATION 05/16/24 23:30 06/15/24 23:29 Hydralazine HCl (APRESOLine 20MG INJ) 10 mg Q2H PRN IV SBP GREATER THAN 160 05/16/24 23:30 05/17/24 11:27 DC 05/17/24 00:21 10 MG Hydralazine HCl (APRESOLine 20MG INJ) 10 mg Q6H6 PRN IV SBP GREATER THAN 150 05/17/24 11:30 06/15/24 23:29 05/20/24 08:25 10 MG Hydromorphone HCl (DiLAUDid 1MG INJ) 1 mg Q3H3 PRN IVP SEVERE PAIN (7-10) 05/20/24 15:00 05/25/24 14:59 05/20/24 17:07 1 MG Insulin Human Regular (humuLIN R 100 UNIT/ML 3ML) INSULIN SLIDING SCAL... ACHS SQ 05/17/24 07:30 06/16/24 07:29 Ketorolac Tromethamine (toRADol) 30 mg Q6H PRN IVP SEVERE PAIN (7-10) 05/17/24 04:30 05/22/24 04:29 05/21/24 08:20 30 MG Lactated Ringer's 1,000 ml @ 75 mls/hr [id number] IV 05/16/24 23:30 06/15/24 23:29 05/20/24 13:10 Lactulose (Constulose 20gm/ 30ml Udcup) 20 gm Q6H PRN PO CONSTIPATION 05/16/24 23:30 06/15/24 23:29 Lisinopril (Prinivil 10mg) 10 mg BID PO 05/17/24 03:15 06/16/24 03:14 05/21/24 08:20 10 MG Morphine Sulfate (morPHINE 2MG SYG) 2 mg Q6H6 PRN IVP SEVERE PAIN (7-10) 05/17/24 11:30 05/24/24 11:29 Ondansetron HCl (zoFRAN 4MG INJ) 4 mg Q6H PRN IVP NAUSEA/VOMITING 05/16/24 23:30 06/15/24 23:29 Oxycodone/ Acetaminophen (perCOCET) 1 tab Q4H PRN PO SEVERE PAIN (7-10) 05/20/24 15:00 05/27/24 14:59 05/21/24 05:38 1 TAB Piperacillin Sod/ Tazobactam Sod (Zosyn 3.375gm+NS 50ml) 3.375 gm Q12H IVPB 05/16/24 23:30 05/26/24 23:29 05/20/24 22:26 3.375 GM Temazepam (restORIL 15 MG CAP) 15 mg HS PRN PO INSOMNIA/SLEEP 05/16/24 23:30 06/15/24 23:29 DIAGNOSTICS / RADIOLOGY: [ ] ASSESSMENT: Cholelithiasis with common ductal dilatation, per abdominal sono on 05/16/2024 Leukocytosis 2/2 above, POA improving Recurrent abdominal pain, POA improved Liver is enlarged and echogenic, consistent with liver parenchymal disease, 05/16/2024 Right renal cyst measuring 12 mm, per sono 05/16/2024 New onset hypertension Hyperglycemia Morbid obesity, BMI 41.4 PLAN: Continues admission in medical surgical Continue GI soft diet and advance as tolerated S/p robotic cholecystectomy SHERRIE drain in place, 40 mL of output reported Transitioning IV Zosyn to Augmentin p.o. Continue lisinopril 10 mg p.o. b.i.d. Blood pressure every 4 hours and p.r.n.. Glucometer checks a.c. and HS with insulin regular sliding scale. Monitor renal and liver function. Monitor electrolytes and treat accordingly. Monitor a.m. labs, PRN Treatment - Add when necessary meds for nausea, vomiting, pain, constipation, insomnia. DVT/GI prophylaxis- Continue SCDs Full CODE STATUS This document was generated in part using voice recognition software, occasional wrong word or sound alike substitutions may have occurred due to the inherent limitations of voice recognition software. Read the chart carefully and recognize using context, where the substitutions have occurred. Although every effort was made to edit the content, car dumper operator and typing errors may occur ATTESTATION BY PHYSICIAN I have seen and examined the patient. I reviewed the documentation, medical decision making, and treatment plan as noted by the mid-level provider above. I agree with the findings and plan of care. Minoo Baugh MD, [facility] May 21, 2024 12:35 MINOO BAUGH MD May 21, 2024 23:09
--- NOTE | 2024-05-21 13:19 | PN ---
GENERAL SURGERY PROGRESS NOTE DATE OF SERVICE: May 21, 2024 TIME OF SERVICE: 13:19 Feeling better Pain at incision site Passing gas Tolerating diet PROBLEM LISTS: [ ] INTERVAL HISTORY: [ ] PHYSICAL EXAMINATION: GENERAL: [Patient is lying comfortably in bed, not in any obvious distress.] HEAD: [Normal with no signs of head trauma.] EYES: [Not pale not jaundiced afebrile to touch.] ENT: [ Normal.] NECK: [Supple,no tenderness,no lymphadenopathy,no masses,no thyromegaly ,no bruits, no JVD.] LUNGS: [Clear breath sounds bilaterally. No wheezes, rales, or rhonchi.] HEART: [Regular rate and rhythm. Normal S1 and S2, without murmurs, rub or gallop.] VASC: [No edema. Peripheral pulses normal and equal in all extremities.] ABD: [Bowel sounds present,soft, RUQ tender, no masses, no organomegaly.] : [Normal, no suprapubic tenderness.] LYMPH: [No lymphadenopathy noted.] EXT: [ Warm soft, non tender.] SKIN: [ No rashes or lesions.] NEURO: [ Awake Alert and oriented x3.] LABORATORY: [ ] Hematology Labs: Test 05/21/24 05:31 Range/Units White Blood Count 12.3 #H 4.8-10.8 K/uL Red Blood Count 4.68 4.50-6.20 MIL/uL Hemoglobin 15.1 14.0-18.0 g/dL Hematocrit 44.2 42-54 % Mean Corpuscular Volume 94.4 79-99 fL Mean Corpuscular Hemoglobin 32.3 27.0-33.0 pg Mean Corpuscular Hemoglobin Concent 34.2 32.0-36.0 g/dL Red Cell Distribution Width 11.9 11.0-15.5 % Platelet Count 242 # 130-400 K/uL Mean Platelet Volume 10.5 7.5-10.5 fL Immature Granulocyte % (Auto) 0.2 0-1 % Neutrophils (%) (Auto) 76.9 40.0-77.0 % Lymphocytes (%) (Auto) 15.1 L 21.0-51.0 % Monocytes (%) (Auto) 7.2 3.0-13.0 % Eosinophils (%) (Auto) 0.4 0.0-8.0 % Basophils (%) (Auto) 0.2 0.0-5.0 % Neutrophils # (Auto) 9.5 H 1.8-7.7 K/uL Lymphocytes # (Auto) 1.9 1.0-4.8 K/uL Monocytes # (Auto) 0.9 0.1-1.0 K/uL Eosinophils # (Auto) 0.05 0.00-0.70 K/uL Basophils # (Auto) 0.02 0.00-0.20 K/uL Absolute Immature Granulocyte (auto 0.03 0-1 K/uL Nucleated Red Blood Cells 0.0 0.0-0.19 % Chemistry Labs: Test 05/21/24 11:30 05/21/24 05:31 Range/Units Whole Blood Glucose 102 70-110 MG/DL Sodium Level 139 136-145 mmol/L Potassium Level 3.7 3.5-5.1 mmol/L Chloride Level 100 L 101-111 mmol/L Carbon Dioxide Level 29 21-32 mmol/L Blood Urea Nitrogen 5 L 7-18 mg/dL Creatinine 1.0 0.5-1.3 mg/dL Glomerular Filtration Rate Calc 103 >90 mL/min Random Glucose 114 H 70-105 mg/dL Total Calcium 8.9 8.5-10.1 mg/dL Total Bilirubin 1.2 H 0.2-1.0 mg/dL Direct Bilirubin 0.2 0.0-0.3 mg/dL Aspartate Amino Transf (AST/SGOT) 47 H 10-37 U/L Alanine Aminotransferase (ALT/SGPT) 64 12-78 U/L Alkaline Phosphatase 59 50-136 U/L Total Protein 7.7 6.0-8.3 g/dL Albumin 3.4 L 3.5-5.0 g/dL DIAGNOSTICS / RADIOLOGY: [Copy/Paste Echos/Imaging Report here] ASSESSMENT: [] Acute cholecystitis S/p robotic cholecystectomy PLAN: Ambulate Advance diet Possible DC in a day or two PIYUSH DUPONT MD May 21, 2024 13:19
[2024-05-22] VITALS: BP 148/85; PULSE 79; RESP 17; TEMP 98.4
[2024-05-22 04:00] VITALS: BP 145/88; PULSE 77; RESP 16; TEMP 98.6
[2024-05-22 06:03] LABS: BASOPHILS # (AUTO) 0.03 K/uL (0.00-0.20); BASOPHILS % (AUTO) 0.3 % (0.0-5.0); EOSINOPHILS # (AUTO) 0.09 K/uL (0.00-0.70); EOSINOPHILS % (AUTO) 0.9 % (0.0-8.0); HEMATOCRIT 42.2 % (42-54); IMMATURE GRANULOCYTE ABSOLUTE 0.03 K/uL (0-1); LYMPHOCYTES # (AUTO) 2.4 K/uL (1.0-4.8); LYMPHOCYTES % (AUTO) 25.2 % (21.0-51.0); MEAN CORPUSCULAR HEMOGLOBIN 32.9 pg (27.0-33.0); MEAN CORPUSCULAR HGB CONC 35.1 g/dL (32.0-36.0); MEAN CORPUSCULAR VOLUME 93.8 fL (79-99); MONOCYTES # (AUTO) 0.9 K/uL (0.1-1.0); MONOCYTES % (AUTO) 8.9 % (3.0-13.0); NEUTROPHILS # (AUTO) 6.3 K/uL (1.8-7.7); NEUTROPHILS % (AUTO) 64.4 % (40.0-77.0); PLATELET COUNT (AUTO) 193 K/uL (130-400); RED CELL DISTRIBUTION WIDTH 11.9 % (11.0-15.5); WHITE BLOOD COUNT (AUTO) 9.7 K/uL (4.8-10.8)
[2024-05-22 06:10] LABS: CREATININE 1.1 mg/dL (0.5-1.3); POTASSIUM 3.8 mmol/L (3.5-5.1)
[2024-05-22 08:00] VITALS: O2SAT 98
[2024-05-22 08:23] VITALS: BP 151/93; PULSE 74; RESP 18; TEMP 99.5
--- NOTE | 2024-05-22 09:07 | DS ---
Discharge Summary Hospital Course Summary: Patient seen and examined in room 317 PCP self-referral Admitting date 05/16/2024 S/p robotic cholecystectomy Today on bedside evaluation patient was found awake alert and oriented x 3. The power chart reviewed, vital signs, laboratory tests, imaging test and medications have been reviewed. Latest vital signs are stable. Afebrile. CBC and CMP are stable. Total bilirubin is downtrending Patient started on IV Zosyn and tolerated. Currently on full liquid diet and also tolerating. Has had bowel movements and good urine output after procedure. Medically stable for discharge. We will transition from IV Zosyn to Augmentin p.o.875 mg p.o. b.i.d. x5 days for prophylactic treatment. Procedure(s): OP Procedure: Robotic Maisha OP Procedure Note OPERATIVE PROCEDURE NOTE DATE OF SERVICE: May 20, 2024 PREOPERATIVE DIAGNOSIS: [ ] POSTOPERATIVE DIAGNOSIS: [ ] PROCEDURES PREFORMED: 1. Robotic Cholecystectomy SURGEON: Get Dupont MD ANESTHESIA: General. ESTIMATED BLOOD LOSS: Minimal. SPECIMEN(S) REMOVED: Gallbladder. FINDINGS: Very enlarged tense gallbladder moderate right upper quadrant inflammatory adhesions COMPLICATIONS: None. DESCRIPTION OF PROCEDURE: The patient was brought into the Operating Room. After proper identification, the patient was placed on the operating table in the supine position. General anesthesia was then administered and the patient was endotracheally intubated. Attention was then focussed in the area of the abdomen. The same was prepped and draped in the usual sterile fashion. An appropriate time-out was then carried out at this point. Then, I proceeded by making an incision in the infraumbilical region. The incision was carried through skin and subcutaneous tissue until the fascia was identified. The fascia was then carefully incised and the stay stitches were placed on either side of the fascia and the Mitul port was then introduced. CO2 was insufflated into the abdomen and the robotic camera was then introduced. Inspection of the abdomen did not show any anterior abdominal wall adhesions. The gallbladder was noted to be enlarged and tense with evidence of moderate right upper quadrant inflammatory adhesions. So at this point, I proceeded by placing the left-sided port and also the right-sided port under vision and my liaison inspection laboratory assistant; port was then placed right-sided lateral. So, at this point, the patient was then placed in slight reverse Trendelenburg position and rotated to his left. The robot was then brought in and then we proceeded by docking the robot with no difficulty. Once the robot was docked and everything looked fine, I proceeded by going into the console area. My liaison inspection laboratory assistant, then grasped the fundus of the gallbladder and the same was retracted cephalad and using the grasper and the robotic [ ], I proceeded by taking down the inflammatory adhesions in the right upper quadrant. At the infundibulum, I proceeded by grasping the infundibulum, I proceeded by carefully opening the peritoneum covering the triangle of Calot and I was able to expose the cystic duct and the cystic artery. Each of these structures were then skeletonized for a distance of about 2 cm and then I proceeded by placing clips; proximal and distal clips on each of these structures. Using the robotic scissors, I proceeded by transecting these 2 structures. The gallbladder was then removed from the gallbladder fossa using the robotic cautery all the way down until I was able to remove it at the fundus as well. Further inspection did not reveal any other pathology. Hemostasis was noted to be adequate. So, at this point, the robot was then undocked. I scrubbed in and the gallbladder was then extracted from the abdomen using an Endopouch. Copious amount of irrigation was carried out at this point. Hemostasis was noted to be adequate. Then, I proceeded by closing the wound. Ports were withdrawn under vision. CO2 was let out of the abdomen. The infraumbilical fascia was approximated together using 0 Vicryl [id number] stitches and the skin was approximated together using 4-0 Monocryl subcuticular closure. Steri-Strips and sterile dressings were then applied. Instrument and sponges count was found correct x2. The patient was then woken up, extubated and taken to Recovery Room in stable condition. The patient tolerated the procedure well. GET DUPONT MD May 20, 2024 13:39 Electronically Signed by: Electronically Co-Signed by: Assessment/Plan: Discharged dx's; Cholelithiasis with common ductal dilatation, per abdominal sono on 05/16/2024 Leukocytosis 2/2 above, POA improving Recurrent abdominal pain, POA improved Liver is enlarged and echogenic, consistent with liver parenchymal disease, 05/16/2024 Right renal cyst measuring 12 mm, per sono 05/16/2024 New onset hypertension Hyperglycemia Morbid obesity, BMI 41.4 PLAN: ADMISSION DATE: 05/16/24 DISCHARGE DATE: 05/22/24 DISPOSITION: Home CONDITION: Stable SENIOR LIVING SALES COUNSELOR(S): General surgeon FOLLOW UP APPOINTMENT(S): Dr Deutsch two weeks PROCEDURES: Lap maisha IMAGING (S) report attached to summary : MICROBIOLOGY: report attached to summary; none ACTIVITY: Ad nicolasa New medications amoxicillin 825 mg p.o. b.i.d. five days. [id number] Tylenol for pain. As directed Home medication none profile TEACHING: No heavy lifting greater than 10 lb for four weeks, avoid greasy foods seizures clean and dry. Emergency instructions: The patient was instructed to present to the nearest Emergency Department or call 911 should their symptoms return or worsen. Home Medications: Active Scripts Amoxicillin/Potassium Clav (Amox Tr-K Clv 875-125 mg Tab) 875 Mg-125 Mg Tablet, 1 TAB PO BID for 5 Days, #10 TAB 0 Refills Prov:OFE BERNABE [employer]ING 05/21/24 New Medications: Amoxicillin/Potassium Clav (Amox Tr-K Clv 875-125 mg Tab) 875 Mg-125 Mg Tablet 1 TAB PO BID for 5 Days, #10 TAB 0 Refills Time spent arranging discharge: 31-60 minutes ATTESTATION BY PHYSICIAN I have seen and examined the patient. I reviewed the documentation, medical decision making, and treatment plan as noted by the mid-level provider above. I agree with the findings and plan of care. Sobeida Norris MD, ELIZABETH NP May 22, 2024 09:07
--- NOTE | 2024-05-22 13:52 | NUR ---
NOTE PATIENT SHERRIE DRAIN DISCONTINUED, PATIENT TOLERATED REMOVAL, FAMILY AT BEDSIDE
== END 2024-05-22 12:26 | disposition home or self-care (01) | DRG 415 ==
LOC: EDH 17:58 → EDHIP 17:59 → 3CH 21:41
PROVIDERS: ADMIT Hospitalist; ATTEND Hospitalist
PROC: 8E0W0CZ Robotic Assisted Procedure of Trunk Region, Open Approach (ICD-10-PCS; 2024-05-20)
PROC: 0FT40ZZ Resection of Gallbladder, Open Approach (ICD-10-PCS; principal; 2024-05-20 10:40)
DX: K80.00 Calculus of gallbladder with acute cholecystitis without obstruction (principal); Z68.41 Body mass index [BMI] 40.0-44.9, adult; N28.1 Cyst of kidney, acquired; K82.8 Other specified diseases of gallbladder; R73.9 Hyperglycemia, unspecified; E66.01 Morbid (severe) obesity due to excess calories; I10 Essential (primary) hypertension; R16.0 Hepatomegaly, not elsewhere classified; Z79.899 Other long term (current) drug therapy
CPT/HCPCS: 36415; 74183; 76705; 78226; 80048; 80053; 80076; 81001; 82948; 83036; 83690; 83735; 84100; 84443; 84484; 85025; 85027; 88304; 96361; 96374; 96375; 99285; A4450; A9537; G0378; J0330; J0360; J1171; J1885; J2003; J2175; J2250; J2270; J2405; J2543; J2704; J3010; J3490; J7030; J7120; A4216; A4222; A4223; A4930; A9575; C1769; J0665